=== PATIENT | male | born 1945 | race Caucasian/White ===

== ENCOUNTER 2021-02-16 14:44 | Emergency (ER) | payer MEDICARE, SELFPAY ==
[2021-02-16] VITALS (35 sets, daily range): BP systolic 125–159; BP diastolic 58–83; PULSE 72–98; RESP 18–22; TEMP 36.4–36.8; O2SAT 91–100
--- NOTE | ~2021-02-16 | CT_ITS ---
EXAMINATION: CTA neck DATE: 02/16/2021 17:32 INDICATION: Stabbing left neck pain TECHNIQUE: Computed tomography (CT) of the neck was performed with 100 mL Omnipaque-350 intravenous c ontrast. Three-dimensional reconstruction. Automated exposure control and iterative reconstruction te chnique were employed. Exam dose: 599.63 mGy-cm total exam DLP. COMPARISON: None FINDINGS: There is prominent calcified plaque at the left carotid bulb. There is focal moderate calcified plaque at the proximal right internal carotid artery. There is mild calcified plaque in the cavernous segments of the internal carotid arteries. No carotid artery occlusion or dissection is evident. The vertebrobasilar arterial circulation is intact. Aortic arch measures upper limits of normal caliber. No aortic arch dissection is evident. No superio r mediastinal mass lesion or adenopathy. No cervical mass lesion or lymphadenopathy is evident. Normal size and homogeneous enhancement of the thyroid gland. Patchy groundglass changes are noted in the upper lung zones. Multilevel degenerative disc disease is noted, particularly at C3-4 and most prominently at C5-6 and C6-7. IMPRESSION: Prominent calcified plaque at the left carotid bulb Moderate calcified plaque in the proximal right internal carotid artery Mild atherosclerotic plaque of the carotid siphon internal carotid arteries No obstruction or dissection of the carotid arteries is detected Multilevel degenerative disc disease of the cervical spine Reviewed, dictated and finalized at [facility]. Reviewed, dictated and finalized at [facility].
--- NOTE | 2021-02-16 14:48 | PC.NURSE ---
Daughter in law sharri Eaton,
[2021-02-16 15:50] LABS: Basophils Absolute Auto 0.1 K/mm3 (0.0-0.1); Basophils Percent Auto 0.7 % (0.2-1.2); Eosinophils Absolute Auto 0.6 K/mm3 (0-0.3); Hematocrit 37.9 % (42.0-52.0); Hemoglobin 13.2 g/dL (14.0-18.0); Immature Granulocyte Absolute 0.05 K/mm3 (0.00-0.031); Immature Granulocyte Percent A 0.5 % (0-0.5); Lymphocytes Absolute Auto 1.66 K/mm3 (0.9-3.2); Mean Corpuscular HGB Conc 34.8 g/dl (32-36); Mean Corpuscular Hemoglobin 31.2 pg (26-34); Mean Corpuscular Volume 89.6 fl (80-100); Mean Platelet Volume 9.5 fl (7.4-10.4); Monocytes Absolute Auto 0.8 K/mm3 (0.1-0.6); Monocytes Percent Auto 7.9 % (2.6-8.5); Neutrophils Absolute Auto 6.7 K/mm3 (1.3-6.7); Neutrophils Percent Auto 67.9 % (45.5-73.1); Platelet Count Result 188 k/mm3 (150-375); Red Blood Count 4.23 M/mm3 (4.6-6.20); Red Cell Distribution Width 12.9 % (11.5-14.5); White Blood Count 9.8 K/mm3 (4.5-10.0)
[2021-02-16] MEDS: HYDROmorphone HCL INJ (*CRX) 1 MG/ML SYR 0.5 MG IV PUSH (15:53)
[2021-02-16 16:00] LABS: Anion Gap 10 mmol/L (8-16); Blood Urea Nitrogen 27 mg/dL (9-20); Calcium 9.5 mg/dL (8.4-10.2); Carbon Dioxide 22 mmol/L (22-30); Chloride 105 mmol/L (98-107); Estimated CRCL calculation 52 ml/min; Estimated Glomerular Filt Rate > 60; Glucose 260 mg/dL (75-110); Potassium 4.5 mmol/L (3.4-5.0); Sodium 137 mmol/L (137-145)
[2021-02-16] MEDS: diazePAM INJ (*CRX) 10 MG/2 ML SYRINGE 2.5 MG IV PUSH (16:05)
[2021-02-16] MEDS: FAMOTIDINE 20 MG TABLET 40 MG PO (16:06)
[2021-02-16] MEDS: diphenhydrAMINE HCl INJ 50 MG/ML VIAL 25 MG IV PUSH (16:06)
--- NOTE | 2021-02-16 19:02 | PC.NURSE ---
Patient was not able to sit up to use sera-steady but was able to assist with raising his hips to allow pants to be pulled down to use urinal.
--- NOTE | 2021-02-16 19:25 | ED.NECK ---
HPI - Neck Pain/Injury General Chief Complaint: Neck Pain/Injury Stated Complaint: neck pain Time Seen by Provider: 02/16/21 14:53 Source: patient Mode of arrival: ambulatory Limitations: no limitations History of Present Illness HPI Narrative: Patient is a 75-year-old male complaining of left-sided neck pain, sudden onset, 10 out of 10, sharp, nonradiating started around 3 AM this morning. Patient states the pain is worse with movement or palpation of his left neck. Patient denies any injury. Patient denies any headache, speech or visual disturbance, chest pain, shortness of breath, abdominal pain, nausea, vomiting, fever or chills. Related Data Allergies Allergy/AdvReac Type Severity Reaction Status Date / Time Iodinated Contrast Media Allergy Unknown Verified 05/02/19 16:12 Penicillins Allergy Unknown Verified 05/02/19 16:12 Yvlmrbz-Zeg-Xnf Reductase Allergy Unknown Verified 05/02/19 16:12 Inhibitor Sulfa (Sulfonamide Allergy Unknown Verified 05/02/19 16:12 Antibiotics) CONTRAST DYE Allergy Unknown Uncoded 11/23/16 07:01 SULFAMERAZINE (Generic Allergy Unknown Y Uncoded 11/23/16 07:01 Allergy) Review of Systems Review of Systems: All systems reviewed & are unremarkable except as noted in HPI and below Constitutional: Constitutional: Denies body ache(s), Denies chills, Denies excessive sweating, Denies fatigue, Denies fever(s), Denies headache(s), Denies lethargy, Denies malaise, Denies weakness and Denies weight loss Eyes: Eyes: Denies blurry vision, Denies change in vision and Denies loss of vision ENT: Denies dizziness, Denies ear discharge, Denies headache(s), Denies lip swelling, Denies epistaxis, Denies nasal congestion, Denies neck pain, Denies throat swelling and Denies tongue swelling Cardiovascular: Cardiovascular: Denies chest pain, Denies chest pain at rest, Denies chest pain with activity, Denies diaphoresis, Denies rapid heart rate, Denies edema, Denies irregular heart rhythm, Denies lightheadedness, Denies palpitations, Denies dyspnea and Denies dyspnea on exertion Respiratory: Respiratory: Denies chest congestion, Denies cough, Denies hemoptysis, Denies dyspnea and Denies dyspnea on exertion Gastrointestinal: Gastrointestinal: Denies abdominal pain, Denies melena, Denies hematochezia, Denies diarrhea, Denies nausea, Denies vomiting and Denies hematemesis Musculoskeletal: Musculoskeletal: Denies abnormal gait, Denies deformity, Denies joint swelling, Denies limited range of motion, Denies neck pain and Denies numbness Neurologic: Denies Abnormal speech present, Denies abnormal gait, Denies confusion, Denies dizziness, Denies headache(s), Denies focal weakness, Denies loss of vision, Denies numbness, Denies Other visual disturbances, Denies Sensory deficit (Neuro) and Denies weakness Psychiatric: Psychiatric: Denies confusion, Denies depression, Denies auditory hallucinations, Denies homicidal ideation and Denies suicidal ideation Endocrine: Endocrine: Denies cold intolerance, Denies excessive sweating, Denies fatigue, Denies heat intolerance and Denies palpitations Hematologic/Lymphatic: Hematologic/Lymphatic: Denies easy bleeding and Denies easy bruising Allergic/Immunologic: Allergic/Immunologic: Denies lip swelling, Denies throat swelling and Denies tongue swelling [facility] Family History Family History (Updated 05/15/14 @ 07:13 by DOCTOR UNKNOWN) Father Malignant neoplasm of prostate Social History Social History Smoking status: Never smoker Smoking end date: 09/18/91 Alcohol intake: never Comments Past medical history: Hypertension Social history: Non-smoker no EtOH use lives at home Family history: Negative for aneurysm Exam Const: General: cooperative, healthy appearing, comfortable, no acute distress, well developed, alert and awake; No confusion Orientation/consciousness: oriented to person, oriented to place, oriented to time, patient oriented x3 and No confusion
== END 2021-02-16 20:01 | disposition home or self-care (01) ==
PROVIDERS: Emergency Provider Emergency Medicine
DX: M43.6 Torticollis (principal)
CPT/HCPCS: 36415; 70498; 80048; 85025; 96374; 96375; 99284; A9270; J1100; J1170; J1200; J3360; Q9967

== ENCOUNTER 2022-06-28 08:03 | Observation (INO) | payer MEDICARE, SELFPAY ==
[2022-06-28] VITALS (20 sets, daily range): BP systolic 115–167; BP diastolic 60–73; PULSE 60–81; RESP 10–21; TEMP 36.4–36.7; O2SAT 96–100
--- NOTE | ~2022-06-28 | CT_ITS ---
EXAMINATION: CTA BRAIN/CAROTID DATE: 06/28/2022 10:25 INDICATION: Recent stroke with occluded left internal carotid artery (neck with aphasia. TECHNIQUE: Computed tomographic angiography (CTA) of the head and neck was performed with 100 mL Omni paque-350 intravenous contrast. Multiplanar reconstructions and maximum intensity projection 3D-recon structions of the carotid arteries and of the intracranial arteries were created by the technologist on a separate workstation. Automated exposure control and iterative reconstruction technique were emp loyed.The dose-length product was 1048.68 mGy-cm. COMPARISON: Head CT dated 06/28/[address] angiogram dated 02/16/2021 FINDINGS: Carotid arteries: Normal caliber aortic arch. Anatomic variant separate origin of the left vertebral artery which arise s directly from the arch. Bilateral vertebral arteries are codominant. There is 10% stenosis of the r ight carotid bulb relative to normal distal artery lumen diameter (NASCET criteria). There is in near occlusion stenosis of the left carotid bulb relative to normal distal artery lumen diameter with mary rly indiscernible threadlike contrast at the site of the stenosis and diffuse decreased caliber throu ghout the more distal left internal carotid artery extending to the carotid siphon which is new since the prior study. Cervical soft tissues are unremarkable. Couple calcified nodules at the left apex c onsistent with old granulomatous disease. Severe cervical spondylosis. Intracranial arteries Atherosclerotic calcifications at the bilateral carotid siphons with no hemodynamically significant s tenosis on the right. On the left there is new significant diffuse decreased caliber of the left inte rnal carotid artery which as previously noted is secondary to the more proximal near occlusion stenos is at the left carotid bulb. There is no other hemodynamically significant stenosis in the vertebral, basilar and internal carotid arteries. Vertebral arteries are codominant. There are no aneurysms rocco ntified. Both A1 and P1 segments are patent. There is a patent anterior communicating artery. Cerebr al arterial arborization appears symmetric. No abnormally enhancing brain lesions identified. IMPRESSION: 1. 10% stenosis of the right carotid bulb relative to normal distal artery lumen diameter (NASCET cri teria). 2. New diffuse decreased caliber throughout the extracranial and intracranial left internal carotid a rtery secondary to a likely flow limiting near occlusion stenosis at the left carotid bulb. 3. Otherwise unremarkable cerebral CT angiogram with likely collateral flow to the left anterior circ ulation supplied via the right internal carotid artery and a patent anterior communicating artery. Reviewed, dictated and finalized at [facility]. IMPRESSION: 1. 10% stenosis of the right carotid bulb relative to normal distal artery lume n diameter (NASCET criteria). 2. New diffuse decreased caliber throughout the extracranial and intracranial l eft internal carotid artery secondary to a likely flow limiting near occlusion stenosis at the left carotid bulb. 3. Otherwise unremarkable cerebral CT angiogram with likely collateral flow to the left anterior circulation supplied via the right internal carotid artery an d a patent anterior communicating artery.
--- NOTE | ~2022-06-28 | MR_ITS ---
EXAMINATION: MR brain/brain stem wo con DATE: 06/29/2022 11:13 INDICATION: Unresponsiveness. Aphasia. TECHNIQUE: Magnetic resonance imaging (MRI) of the brain and brainstem was performed without intraven ous contrast. COMPARISON: Head and neck CTA 06/28/2022 FINDINGS: There is an infarct in left occipital lobe. There is an infarct in left thalamus. There are infarcts in left insula and parietal lobes. These findings are characterized by increased T2-weighte d signal intensity. There are scattered areas of nonspecific increased T2-weighted signal intensity i n the cerebral white matter, which is within normal limits for the patient's age. There is no intracr anial hemorrhage or abnormal mass lesion. The ventricles are normal in size. There is loss of the nor mal left internal carotid artery flow void. There are likely changes of ocular lens replacement surge ritchie. There is mucosal thickening in the paranasal sinuses. There is a trace left mastoid effusion. IMPRESSION: 1. Subacute versus chronic infarcts involving left occipital lobe, left insula, left parietal lobe, a nd left thalamus. 2. Loss of the normal left internal carotid artery flow void, likely secondary to slow flow from the near-occlusion stenosis of left cervical internal carotid artery demonstrated by CTA. Reviewed, dictated and finalized at location [facility]. IMPRESSION: 1. Subacute versus chronic infarcts involving left occipital lobe, left insula, left parietal lobe, and left thalamus. 2. Loss of the normal left internal carotid artery flow void, likely secondary to slow flow from the near-occlusion stenosis of left cervical internal carotid artery demonstrated by CTA.
--- NOTE | ~2022-06-28 | CT_ITS ---
EXAMINATION: CT brain wo con DATE: 06/28/2022 08:09 INDICATION: Evaluate for CVA. Mental status changes. TECHNIQUE: Computed tomography (CT) of the head was performed without intravenous contrast. The dose- length product was 605.33 mGy-cm. Automated exposure control and iterative reconstruction technique w ere employed. COMPARISON: None FINDINGS: Mild generalized atrophy. There are scattered mild periventricular and subcortical white ma tter changes, most likely related to small vessel ischemic disease (microangiopathy). No no acute int racranial hemorrhage or infarction. Ventriculomegaly or midline shift. Paranasal sinuses demonstrate mucosal thickening of the maxillary and ethmoid sinuses. Mastoids are pneumatized. No depressed skull fractures. Small chronic left thalamic infarct. IMPRESSION: 1. No acute intracranial abnormality. 2: Small chronic left thalamic infarction. 3: Chronic age-related findings. As per stroke protocol, I called these results to emergency room, discussed with Dr. Zuly peter at 06/28/2022 08:16 CDT. Reviewed, dictated and finalized at location A. IMPRESSION: 1. No acute intracranial abnormality. 2: Small chronic left thalamic infarction. 3: Chronic age-related findings. As per stroke protocol, I called these results to emergency room, discussed wit h Dr. Zuly Conley at 06/28/2022 08:16 CDT.
--- NOTE | ~2022-06-28 | XR_ITS ---
EXAMINATION: XR chest 1V portable DATE: 06/28/2022 08:28 INDICATION: Cerebrovascular accident. Weakness. TECHNIQUE: A single frontal view of the chest was obtained. COMPARISON: Chest 2 views 11/23/2016, CT abdomen and pelvis 05/07/2019 FINDINGS: The lung volumes are small. There is mild atelectasis in the lower lung zones. A calcified left lung nodule is consistent with old granulomatous disease. No pleural effusion or pneumothorax. T he heart size is normal. IMPRESSION: 1. Small lung volumes with mild atelectasis in the lower lung zones. Reviewed, dictated and finalized at location A.
--- NOTE | 2022-06-28 08:03 | ECG_ITS ---
Measurements Intervals [place] Rate: 76 P: 55 KS: 146 QRS: -22 QRSD: 99 T: 55 QT: 367 QTc: 413 Interpretive Statements SINUS RHYTHM POOR R-WAVE PROGRESSION, CANNOT RULE OUT AN OLD SEPTAL NH NO PREVIOUS ECG AVAILABLE FOR COMPARISON Electronically Signed On 06-28-2022 13:19:18 CDT by Celeste Bean M.D.
--- NOTE | 2022-06-28 08:23 | ED.NEUROSD ---
HPI - Neuro Symptoms/Deficit General Chief Complaint: Suspected CVA Stated Complaint: code stroke Time Seen by Provider: 06/28/22 08:09 History of Present Illness HPI Narrative: Patient is a 77-year-old male presenting as a code stroke. Patient was reportedly out walking with his when he became unresponsive. His was able to help him down and she called EMS. For EMS, patient was minimally responsive with left-sided weakness. Patient's reports that he complained of left-sided numbness prior to his unresponsiveness. Patient had a stroke approximately 6 weeks ago. On arrival, patient is minimally responsive but maintaining his airway. Related Data Home Medications Medication Instructions Recorded Confirmed insulin aspart U-100 100 unit/mL See Rx Instructions .Route .COMPLEX 02/26/21 06/28/22 (3 mL) subcutaneous pen (Novolog Flexpen U-100 Insulin aspart) insulin glargine 100 unit/mL 80 unit subcut QPM 02/26/21 06/28/22 subcutaneous solution (Lantus U-100 Insulin) lisinopril 10 mg tablet 5 mg PO DAILY 02/26/21 06/28/22 metformin 1,000 mg tablet 1,000 mg PO BID 02/26/21 06/28/22 multivitamin 1 tablet PO DAILY 02/26/21 06/28/22 pantoprazole 40 mg tablet,delayed 40 mg PO QHS 02/26/21 06/28/22 release psyllium husk 0.4 gram capsule 0.4 g PO DAILY 02/26/21 06/28/22 (Metamucil) empagliflozin 25 mg tablet 12.5 mg PO DAILY 06/28/22 06/28/22 Allergies Allergy/AdvReac Type Severity Reaction Status Date / Time Iodinated Contrast Media Allergy Intermediate rash Verified 06/28/22 10:03 Penicillins Allergy Unknown unknown Verified 06/28/22 10:03 Xzkoftj-WBD-QsZ Reductase Allergy Unknown unknown Verified 06/28/22 10:03 Inhibitor [Kwbiema-Dkh-Yjy Reductase Inhibitor] Sulfa (Sulfonamide Allergy Unknown unknown Verified 06/28/22 10:03 Antibiotics) sulfamerazine Allergy Unknown Unknown Verified 06/28/22 10:03 saxagliptin Allergy Unknown Verified 06/28/22 15:31 CONTRAST DYE Allergy Unknown unknown Uncoded 05/17/22 13:08 Review of Systems Review of Systems: ROS unobtainable: Yes unobtainable due to medical condition [facility] Past Medical History Medical History (Updated 06/29/22 @ 21:57 by Zuly Conley MD) Abdominal aortic atherosclerosis Annual physical exam Benign essential HTN Carotid atherosclerosis Constipation Degenerative arthritis of spine Diverticulosis of both small and large intestine Dupuytren's contracture of right hand Establishing care with new doctor, encounter for GERD (gastroesophageal reflux disease) Hyperlipidemia CHAPARRO (nonalcoholic steatohepatitis) Normal colonoscopy 2012,repeat 10 years 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 He has 2 children. He is retired from [employer]. He is a [place] vet. He was a former smoker. No longer drinks. He does not use any marijuana or illicit drugs. His is the durable power prosecuting attorney for healthcare. Code status full code Smoking packs per day: 1 Smoking cigarettes per day: 20.0 Years smoked: 20 Smoking pack-years: 20.00 Smoking status: Former smoker Tobacco type: cigarettes Second hand tobacco smoke exposure: No Smoking end date: 09/18/91 Alcohol intake: never Substance use: never Substance use type: does not use Gender identity (if verbalized by the patient): Male Sexual Orientation (if Verbalized by the Patient): Straight or Heterosexual Spiritual care concerns: No Exam Narrativ
[2022-06-28 08:32] LABS: Basophils Absolute Auto 0.1 K/mm3 (0.0-0.1); Eosinophils Absolute Auto 0.5 K/mm3 (0-0.3); Eosinophils Percent Auto 6.4 % (0-4.4); Hematocrit 38.4 % (42.0-52.0); Hemoglobin 13.3 g/dL (14.0-18.0); Immature Granulocyte Absolute 0.04 K/mm3 (0.00-0.031); Immature Granulocyte Percent A 0.5 % (0-0.5); Lymphocytes Absolute Auto 2.09 K/mm3 (0.9-3.2); Lymphocytes Percent Auto 28.6 % (18.3-44.2); Mean Corpuscular HGB Conc 34.6 g/dl (32-36); Mean Corpuscular Hemoglobin 30.6 pg (26-34); Mean Corpuscular Volume 88.3 fl (80-100); Mean Platelet Volume 9.5 fl (7.4-10.4); Monocytes Absolute Auto 0.7 K/mm3 (0.1-0.6); Neutrophils Absolute Auto 3.9 K/mm3 (1.3-6.7); Neutrophils Percent Auto 53.5 % (45.5-73.1); Platelet Count Result 204 k/mm3 (150-375); Red Blood Count 4.35 M/mm3 (4.6-6.20); Red Cell Distribution Width 13.2 % (11.5-14.5); White Blood Count 7.3 K/mm3 (4.5-10.0)
[2022-06-28 08:36] LABS: Alanine Aminotransferase 25 U/L (6-50); Albumin Level 4.3 g/dL (3.5-5.1); Alkaline Phosphatase 114 U/L (38-126); Anion Gap 11 mmol/L (8-16); Aspartate Amino Transferase 24 U/L (17-59); Bilirubin,Total 0.4 mg/dL (0.2-1.3); Blood Urea Nitrogen 42 mg/dL (9-20); Calcium 9.3 mg/dL (8.4-10.2); Carbon Dioxide 22 mmol/L (22-30); Chloride 106 mmol/L (98-107); Estimated Glomerular Filt Rate 54; Glucose 234 mg/dL (65-110); Potassium 4.7 mmol/L (3.4-5.0); Sodium 139 mmol/L (137-145)
[2022-06-28 08:38] LABS: Prothrombin Time 12.3 Seconds (11.1-14.7)
[2022-06-28 08:39] LABS: Partial Thromboplastin Time 28.9 SECONDS (22.3-36.8)
[2022-06-28 08:47] LABS: Troponin I < 0.012 ng/mL (0.000-0.034)
[2022-06-28] MEDS: SODIUM CHLORIDE 0.9% IV 1,000 ML 999 ML IV CONT (10:16)
[2022-06-28] MEDS: diphenhydrAMINE HCl INJ 50 MG/ML VIAL 25 MG IV PUSH (10:16)
[2022-06-28 11:02] LABS: Add Urine Microscopic? YES; Appearance Urine Clear (Clear); Bilirubin Urine Negative (Negative); Blood Urine Negative (Negative); Color Urine Straw (Yellow); Glucose Urine UA 3+ mg/dL (Negative); Ketones Urine Negative (Negative); Leukocyte Esterase Ur Negative LEU/UL (Negative); Nitrate Urine Negative (Negative); Protein Urine Negative (Negative); RBC Urine 0-2 /hpf (0-2); Urobilinogen Urine Negative mg/dL (<2.0); WBC Urine 0-3 /hpf
--- NOTE | 2022-06-28 12:04 | PC.NURSE ---
[facility] does not have tele beds; pt. offered opportunity to be put on their wait list and declined. Wants U called again.
[2022-06-28 13:38] LABS: SARS-CoV-2 RNA PCR Positive
--- NOTE | 2022-06-28 14:21 | WPDNEURCNPN ---
Assessment and Plan Assessment and plan (1) Unresponsiveness: Code(s): R41.89 - Other symptoms and signs involving cognitive functions and awareness Status: Acute (2) ICAO (internal carotid artery occlusion): Code(s): I65.29 - Occlusion and stenosis of unspecified carotid artery Status: Acute (3) Acute cerebrovascular accident (CVA) due to occlusion of left carotid artery: Code(s): I63.232 - Cerebral infarction due to unspecified occlusion or stenosis of left carotid arteries Status: Acute (4) Diabetes mellitus: Code(s): E11.9 - Type 2 diabetes mellitus without complications Status: Acute (5) Benign essential HTN: Code(s): I10 - Essential (primary) hypertension Status: Acute Plan Mr. Eaton is a 77 year old male with a history of HTN, DM type 2, carotid disease with near occlusion of L ICA, and prior left temporal/thalamic stroke presenting with episode of unresponsiveness and left sided weakness. Considering syncope due to carotid disease vs new stroke (given new LLE weakness) vs seizure. - MRI brain w/o contrast - Surface echo - If MRI negative for acute stroke, consider routine EEG - Continue ASA, Plavix, and Lipitor 80mg - Close outpatient vascular surgery follow-up Consult date: 06/28/22 HPI: Landen Eaton is a 77 year old male with a history of type 2 DM, HTN, carotid disease, and prior strokes presenting to the ED due to new weakness. Patient had a stroke about 6 weeks ago in the left temporal area and was also found to have near L internal carotid artery occlusion. He has been evaluated by vascular surgery in the past and was not a candidate for surgical intervention. He was discharged with DAPT and high dose atorvastatin. Per chart review, patient did not have any residual deficits after the stroke other than gait dysfunction. Today patient was walking with his when he complained of left sided numbness and then became unconscious. Patient does not recall the event, and does not know if there were any abnormal movements. EMS was called and he was minimally responsive at that time and appeared to have left sided weakness. No incontinence or tongue biting. On arrival to ED, patient was minimally responsive, but eventually regained consciousness. Patient is at baseline mental status now. He denies any persistent left numbness, but did feel that his left leg was weaker while he was examined. He also feels that his voice is quieter than usual. CT head showed old L thalamic infarct. CTA shows near occlusion of left ICA and 10% stenosis of R ICA. Review of Systems Constitutional: Constitutional: Reports no additional constitutional complaints Eyes: Eyes: Reports no additional eye complaints ENT: Denies dysphagia Comments: h/o hearing loss Cardiovascular: Cardiovascular: Reports no additional cardiovascular complaints Respiratory: Respiratory: Reports no additional respiratory complaints Gastrointestinal: Gastrointestinal: Reports no additional gastrointestinal complaints Genitourinary: Genitourinary: Reports no additional male genitourinary complaints Musculoskeletal: Musculoskeletal: Reports no additional musculoskeletal complaints Integumentary/Breasts: Skin/Breast: Reports system reviewed and no additional complaints, except as docu Neurologic: Reports as per HPI, Reports confusion and Reports numbness Psychiatric: Psychiatric: Reports behavioral changes and Reports confusion PMFSH Past Medical History Medical History Abdominal aortic atherosclerosis Benign essential HTN Carotid atherosclerosis Constipation Degenerative arthritis of spine Diverticulosis of both small and large intestine GERD (gastroesophageal reflux disease) Hyperlipidemia CHAPARRO (nonalcoholic steatohepatitis) Normal colonoscopy 2012,repeat 10 years Type 2 diabetes mellitus with diabetic chronic kidney disease
--- NOTE | 2022-06-28 15:16 | ADMGEN ---
This patient, Landen Eaton, was admitted to [facility] Surg Room 314-01. Patient/family oriented to hospital policies and general routines including ID bracelet, bed and alarms, visiting hours, pain management, procedures, bathroom and other care routines, personal items, smoking policy, room service/diet, and visiting hours. Information on how to activate the Rapid Response Team has been discussed. Patient/Family are encouraged to report perceived risks to care and to ask questions if they do not understand what they are told or what they should do. Patient in bed resting comfortably with no complaints at this time.
--- NOTE | 2022-06-28 22:54 | PM.IMHP ---
H&P: HPI History of Present Illness Date/Time: 06/28/22 22:54 Chief Complaint: Suspected CVA Narrative: this is a 77-year-old male patient who has a history of having of a stroke 6 weeks ago. The patient was out walking with his when he became unresponsive. The was unable to help him and so she called EMS. Patient was minimally responsive with left-sided weakness. Upon arrival to the emergency room he was minimally responsive but maintaining his airway. Head neck CT was read as the following. 1.10% stenosis of the right carotid bulb relative to normal distal artery lumen diameter (NASCET criteria). 2. New diffuse decreased caliber throughout the extracranial and intracranial left internal carotid artery secondary to a likely flow limiting near occlusion stenosis at the left carotid bulb. 3. Otherwise unremarkable cerebral CT angiogram with likely collateral flow to the left anterior circulation supplied via the right internal carotid artery and a patent anterior communicating artery. chest x-ray was read as small lung volumes with mild atelectasis in the lower lung zones. Head CT was read as no acute intracranial abnormality. Small chronic left at the make infarction. Chronic age-related findings. The patient was given IV fluids and Benadryl. Neurology has been consulted. His H&H today is 13.3 and 38.4 which is his baseline. His blood sugar was noted to be 234. The patient was found to be COVID positive but he was COVID positive 1 month ago and is no longer on isolation. The patient is being admitted to observation on the date of service of 06/28/2022. Review of Systems Review of Systems: See HPI All systems reviewed & are unremarkable except as noted in HPI and below Constitutional: Constitutional: Reports as per HPI and Reports no additional constitutional complaints Eyes: Eyes: Reports as per HPI and Reports no additional eye complaints ENT: Reports system reviewed and no additional complaints, except as documented and Reports Normal hearing present Cardiovascular: Cardiovascular: Reports no additional cardiovascular complaints Respiratory: Respiratory: Reports no additional respiratory complaints and Reports no additional respiratory complaints Gastrointestinal: Gastrointestinal: Reports as per HPI and Reports no additional gastrointestinal complaints Musculoskeletal: Musculoskeletal: Reports no additional musculoskeletal complaints Integumentary/Breasts: Skin/Breast: Reports system reviewed and no additional complaints, except as docu and Reports as per HPI Neurologic: Reports system reviewed and no additional complaints, except as documented, Reports as per HPI and Reports Normal hearing present Psychiatric: Psychiatric: Reports no additional psychiatric complaints and Reports as per HPI Endocrine: Endocrine: Reports no additional endocrine complaints Hematologic/Lymphatic: Hematologic/Lymphatic: Reports no additional hematologic/lymphatic complaints Allergic/Immunologic: Allergic/Immunologic: Reports no additional allergic/immunologic complaints [facility] Past Medical History Medical History (Updated 06/28/22 @ 23:16 by Annamarie Smart NP) Abdominal aortic atherosclerosis Annual physical exam Benign essential HTN Carotid atherosclerosis Constipation Degenerative arthritis of spine Diverticulosis of both small and large intestine Dupuytren's contracture of right hand Establishing care with new doctor, encounter for GERD (gastroesophageal reflux disease) Hyperlipidemia CHAPARRO (nonalcoholic steatohepatitis) Normal colonoscopy 2012,repeat 10 years 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
[2022-06-29] VITALS: PULSE 66
--- NOTE | 2022-06-29 | ECHO_ITS ---
Patient Info Name: Landen Eaton Age: 77 years : 1945 Gender: Male Ht: 69 in Wt: 171 lbs BSA: 1.95 m2 HR: 72 bpm BP: 131 / 65 mmHg Heart Rhythm: Sinus Rhythm Technical Quality: Fair Exam Date: 06/29/2022 3:03 PM Exam Location: [facility] Patient Status: Outpatient Admit Date: 06/28/2022 Staff Ordering Physician: Juliette Hayes PA-C Prize Fighter: Kayleen Brooks RDCS Attending Provider: Juliette Hayes PA-C Referring Physician: Freddy DENNIS; Exam Type: CA echo doppler w bubble study Study Info Indications - CVA, SYNCOPE Complete two-dimensional, color flow and Doppler transthoracic echocardiogram is performed with agitated saline. Contrast/Agitated Saline Contrast/Ag. Saline: Agitated Saline Amount: 20.00 ml Administered By: Mare Carter Existing IV Access: Yes IV Access Condition: patent with no signs of infiltration Summary 1. Left ventricular chamber dimension is normal. 2. Left ventricular systolic function is normal, estimated at 60-65%. 3. There is mildly increased left ventricular wall thickness. 4. The left ventricular diastolic function is grade I diastolic dysfunction. 5. E/e' 11 is mildly elevated. 6. There is mild aortic valve sclerosis. 7. The mitral valve has mildly calcified annulus. 8. There is mild tricuspid valve regurgitation. 9. No pulmonary hypertension, estimated pulmonary arterial systolic pressure is 24 mmHg. Left Ventricle E/e' 11 is mildly elevated. Left ventricular chamber dimension is normal. Left ventricular systolic function is normal, estimated at 60-65%. There is mildly increased left ventricular wall thickness. The left ventricular diastolic function is grade I diastolic dysfunction. Right Ventricle Right ventricular systolic function is normal and with normal TAPSE 1.7 cm. Right ventricular chamber dimension is normal. Left Atria Left atrial chamber dimension is normal. Right Atria Right atrial chamber dimension is normal. Atrial Septum Agitated saline injection with and without valsalva maneuver opacified right side cardiac chambers without shunt to left side cardiac chambers. Intact interatrial septum visualized by 2D, color flow and agitated saline imaging. Aortic Valve The aortic valve is trileaflet. There is mild aortic valve sclerosis. There is no aortic valve stenosis. There is no aortic valve regurgitation. Pulmonic Valve There is no pulmonic regurgitation. Mitral Valve The mitral valve has mildly calcified annulus. There is no mitral valve stenosis. There is no mitral valve regurgitation. Tricuspid Valve There is mild tricuspid valve regurgitation. No pulmonary hypertension, estimated pulmonary arterial systolic pressure is 24 mmHg. Pericardium/Pleural There is no pericardial effusion. Inferior Vena Cava Normal inferior vena cava with >50% collapse upon inspiration consistent with normal right atrial pressure, 5 mmHg. Aorta The aortic root size at the sinus of Valsalva is normal. Left Ventricular Outflow Tract Name Value Normal LVOT 2D LVOT Diameter 2.0 cm LVOT Doppler
[2022-06-29] MEDS: ATORVASTATIN 40 MG TABLET 80 MG PO ×2 (01:09→21:44)
[2022-06-29] MEDS: PANTOPRAZOLE 40 MG TABLET PO ×2 (01:10→21:44)
[2022-06-29 04:00] VITALS: PULSE 61
[2022-06-29 06:00] VITALS: BP 131/65; PULSE 72; RESP 16; TEMP 36.7; O2SAT 98
[2022-06-29 06:27] LABS: Basophils Absolute Auto 0.1 K/mm3 (0.0-0.1); Basophils Percent Auto 0.9 % (0.2-1.2); Eosinophils Absolute Auto 0.6 K/mm3 (0-0.3); Eosinophils Percent Auto 7.2 % (0-4.4); Hematocrit 38.6 % (42.0-52.0); Hemoglobin 13.2 g/dL (14.0-18.0); Immature Granulocyte Absolute 0.04 K/mm3 (0.00-0.031); Immature Granulocyte Percent A 0.5 % (0-0.5); Lymphocytes Percent Auto 26.2 % (18.3-44.2); Mean Corpuscular HGB Conc 34.2 g/dl (32-36); Mean Corpuscular Hemoglobin 30.2 pg (26-34); Mean Corpuscular Volume 88.3 fl (80-100); Mean Platelet Volume 9.6 fl (7.4-10.4); Monocytes Absolute Auto 0.8 K/mm3 (0.1-0.6); Monocytes Percent Auto 10.1 % (2.6-8.5); Neutrophils Absolute Auto 4.2 K/mm3 (1.3-6.7); Neutrophils Percent Auto 55.1 % (45.5-73.1); Platelet Count Result 190 k/mm3 (150-375); Red Blood Count 4.37 M/mm3 (4.6-6.20); Red Cell Distribution Width 13.3 % (11.5-14.5); White Blood Count 7.6 K/mm3 (4.5-10.0)
[2022-06-29 06:45] LABS: Alanine Aminotransferase 25 U/L (6-50); Albumin Level 4.2 g/dL (3.5-5.1); Alkaline Phosphatase 85 U/L (38-126); Anion Gap 10 mmol/L (8-16); Aspartate Amino Transferase 24 U/L (17-59); Bilirubin,Total 0.5 mg/dL (0.2-1.3); Blood Urea Nitrogen 30 mg/dL (9-20); Calcium 9.3 mg/dL (8.4-10.2); Carbon Dioxide 22 mmol/L (22-30); Chloride 109 mmol/L (98-107); Estimated Glomerular Filt Rate 59; Glucose 166 mg/dL (65-110); Magnesium 1.8 mg/dL (1.6-2.3); Potassium 4.5 mmol/L (3.4-5.0); Sodium 141 mmol/L (137-145)
[2022-06-29 07:11] LABS: Hemoglobin A1C 7.6 % (<5.7)
[2022-06-29 08:00] VITALS: PULSE 64
[2022-06-29] MEDS: lisinopriL 5 MG TABLET PO (08:13)
[2022-06-29] MEDS: MULTIVITAMINS THERAPEUTIC TAB (*BKC) 1 TABLET PO (08:13)
[2022-06-29] MEDS: CLOPIDOGREL BISULFATE 75 MG TABLET PO (08:13)
[2022-06-29] MEDS: EMPAGLIFLOZIN 12.5 MG TABLET PO (08:13)
[2022-06-29] MEDS: PSYLLIUM POWDER PACKET 1 PACKET BY MOUTH (08:14)
[2022-06-29 08:29] LABS: Glucose Point of Care 181 mg/dl (65-105)
--- NOTE | 2022-06-29 11:34 | PCNWS ---
Weekly nutritional screen. Patient is tolerating current diet with adequate intake. No nutritional needs at this time. Upon talking to patient, weight loss reported on nursing screen is planned weight loss, related to increased exercise. Appetite is good. Follow up 7 days.
[2022-06-29 11:53] LABS: Glucose Point of Care 367 mg/dl (65-105)
[2022-06-29] MEDS: INSULIN ASPART (*BKC) 100 UNITS/ML SUB-Q ×2 (12:05→17:35)
[2022-06-29 12:44] LABS: Glucose Point of Care 226 mg/dl (65-105)
--- NOTE | 2022-06-29 13:57 | WPDNEUROPN ---
Progress Note: A&P Assessment and Plan (1) Chronic left arterial ischemic stroke, ICA (internal carotid artery): Code(s): I69.30 - Unspecified sequelae of cerebral infarction Status: Acute (2) Unresponsiveness: Code(s): R41.89 - Other symptoms and signs involving cognitive functions and awareness Status: Acute (3) Type 2 diabetes mellitus with diabetic chronic kidney disease: Code(s): E11.22 - Type 2 diabetes mellitus with diabetic chronic kidney disease Status: Acute (4) Hyperlipidemia: Code(s): E78.5 - Hyperlipidemia, unspecified Status: Acute (5) Benign essential HTN: Code(s): I10 - Essential (primary) hypertension Status: Acute Plan Mr. Eaton is a 77 year old male with a history of HTN, DM type 2, carotid disease with near occlusion of L ICA (intracranial and extracranial), and prior left temporal/thalamic stroke presenting with episode of unresponsiveness and left sided weakness. MRI showed subacute vs chronic infarct in the left parietal, occipital, insula, and thalamus. Prior stroke was documented to be in left temporal region. Etiology is likely large vessel disease given significant L ICA stenosis. As for the episodes of decreased consciousness, suspect that they are likely syncopal events due to carotid stenosis, although seizure is also a consideration given history of strokes. - Surface echo pending - Will obtain routine EEG - Continue ASA, Plavix, and Lipitor 80mg - Patient will need to be re-evaluated by neurointerventionalist/vascular surgery within the next 2 weeks; if unable to be seen as outpatient within that timeframe, will transfer to center that has vascular surgery/interventional neurology Subjective Date/time seen: 06/29/22 13:57 Interval history: Landen Eaton is a 77 year old male with a history of type 2 DM, HTN, carotid disease, and prior strokes presenting to the ED due to new weakness. Patient had a stroke about 6 weeks ago? in the left temporal area and was also found to have near L internal carotid artery occlusion. He has been evaluated by vascular surgery in the past and was not a candidate for surgical intervention. He was discharged with DAPT and high dose atorvastatin. Per chart review, patient did not have any residual deficits after the stroke other than gait dysfunction. On 06/29 patient was walking with his when he complained of left sided numbness and then became unconscious. denies any abnormal movements, but he was staring off and not responding to stimuli. Patient does not recall the event. Per daughter he had a similar episode last month. EMS was called and he was minimally responsive at that time and appeared to have left sided weakness. No incontinence or tongue biting. On arrival to ED, patient was still minimally responsive, but eventually regained consciousness. CT head showed old L thalamic infarct. CTA shows near occlusion of left ICA and 10% stenosis of R ICA. MRI brain showed subacute vs chronic infarct in the left parietal, occipital, insula, and thalamus. Patient denies any complaints this morning. He was able to ambulate with assistance this morning. No reports of weakness. Daughter at bedside. Review of Systems Constitutional: Constitutional: Reports no additional constitutional complaints Eyes: Eyes: Reports no additional eye complaints ENT: Reports system reviewed and no additional complaints, except as documented Cardiovascular: Cardiovascular: Reports no additional cardiovascular complaints Respiratory: Respiratory: Reports no additional respiratory complaints Gastrointestinal: Gastrointestinal: Reports no additional gastrointestinal complaints Genitourinary: Genitourinary: Reports no additional male genitourinary complaints Musculoskeletal: Musculoskeletal: Reports no additional musculoskeletal complaints Integumentary/Breasts: Skin/Breast: Reports system reviewed and no additional complai
[2022-06-29 14:00] VITALS: BP 104/57; PULSE 72; RESP 14; TEMP 36.3; O2SAT 97
--- NOTE | 2022-06-29 16:25 | P.PNIM_ITS ---
Progress Note: A&P Assessment and Plan (1) Unresponsiveness: Code(s): R41.89 - Other symptoms and signs involving cognitive functions and awareness Status: Acute Assessment and Plan: Patient had an episode of decreased responsiveness witnessed by family, duration not entirely clear * likely consistent with syncopal event, possibly related to carotid occlusion * see plan below * appreciate neurology consultation * head/neck CTA does not show any acute finding * echocardiogram is pending * EEG pending (2) Chronic left arterial ischemic stroke, ICA (internal carotid artery): Code(s): I69.30 - Unspecified sequelae of cerebral infarction Status: Acute Assessment and Plan: patient with history of CVA 6 weeks ago, evaluated at outside facility. * does not seem to have any major residual deficits * brain MRI showed subacute vs chronic infarcts involving left occipital lobe, left insula, left parietal lobe, and left thalamus * continue aspirin, Plavix, atorvastatin (3) ICAO (internal carotid artery occlusion): Code(s): I65.29 - Occlusion and stenosis of unspecified carotid artery Status: Acute Assessment and Plan: CTA reveals new diffuse decreased caliber throughout the extracranial and intracranial left internal carotid artery secondary to likely flow limiting near occlusion stenosis at the left carotid bulb with 10% stenosis of the right carotid bulb * Neurology recommends evaluation by vascular surgery or neuro interventionalist within 2 weeks given CVA and syncopal episodes. * Patient was evaluated by vascular surgery at outside hospital but was informed surgery was not indicated at that time. * Records have been requested from outside hospital for further evaluation, unfortunately patient has declined to sign the records release. Awaiting for call back from daughter/POA to talk to patient about signing or to sign the form herself. once appropriate information is obtained, I will call patient's vascular surgeon for further information * Spoke with [facility] neurointerventionalist, report patient may be candidate for stent, however would need to consider angiogram for further evaluation. Will follow-up once records from outside facility are obtained. * With outpatient follow-up not able to be completed within 2 weeks, would need to arrange inpatient transfer (4) Diabetes mellitus: Code(s): E11.9 - Type 2 diabetes mellitus without complications Status: Acute Assessment and Plan: A1c is 7.6. * Home insulin regimen consist of 80 units Lantus q.h.s. with NovoLog 12 units a.m. 25 units with lunch and 25 units with dinner. Patient states he does not believe in diabetic diet or dietary modifications. * Continue with Accu-Cheks, sliding scale insulin, hypoglycemic protocol * Home metformin on hold * Will decrease Lantus at this time to avoid hypoglycemia. Transition to 50 units Lantus qHS with novolog 15 units scheduled with meals * Monitor glucose trends closely (5) Benign essential HTN: Code(s): I10 - Essential (primary) hypertension Status: Acute Assessment and Plan: Blood pressure is stable. * Continue home lisinopril * Monitor glucose trends Plan COVID PCR remains positive following acute COVID infection 1 month prior. No need for isolation precautions. Patient maintaining adequate O2 saturations. No need for further evaluation or monitoring. Subjective Date/time seen: 06/29/22 16:25 Interval history: Date of service: 06/29/2022 Landen Vincent
--- NOTE | 2022-06-29 16:25 | PM.IMPN ---
Progress Note: A&P Assessment and Plan (1) Unresponsiveness: Code(s): R41.89 - Other symptoms and signs involving cognitive functions and awareness Status: Acute Assessment and Plan: Patient had an episode of decreased responsiveness witnessed by family, duration not entirely clear likely consistent with syncopal event, possibly related to carotid occlusion see plan below appreciate neurology consultation head/neck CTA does not show any acute finding echocardiogram is pending EEG pending (2) Chronic left arterial ischemic stroke, ICA (internal carotid artery): Code(s): I69.30 - Unspecified sequelae of cerebral infarction Status: Acute Assessment and Plan: patient with history of CVA 6 weeks ago, evaluated at outside facility. does not seem to have any major residual deficits brain MRI showed subacute vs chronic infarcts involving left occipital lobe, left insula, left parietal lobe, and left thalamus continue aspirin, Plavix, atorvastatin (3) ICAO (internal carotid artery occlusion): Code(s): I65.29 - Occlusion and stenosis of unspecified carotid artery Status: Acute Assessment and Plan: CTA reveals new diffuse decreased caliber throughout the extracranial and intracranial left internal carotid artery secondary to likely flow limiting near occlusion stenosis at the left carotid bulb with 10% stenosis of the right carotid bulb Neurology recommends evaluation by vascular surgery or neuro interventionalist within 2 weeks given CVA and syncopal episodes. Patient was evaluated by vascular surgery at outside hospital but was informed surgery was not indicated at that time. Records have been requested from outside hospital for further evaluation, unfortunately patient has declined to sign the records release. Awaiting for call back from daughter/POA to talk to patient about signing or to sign the form herself. once appropriate information is obtained, I will call patient's vascular surgeon for further information Spoke with [facility] neurointerventionalist, report patient may be candidate for stent, however would need to consider angiogram for further evaluation. Will follow-up once records from outside facility are obtained. With outpatient follow-up not able to be completed within 2 weeks, would need to arrange inpatient transfer (4) Diabetes mellitus: Code(s): E11.9 - Type 2 diabetes mellitus without complications Status: Acute Assessment and Plan: A1c is 7.6. Home insulin regimen consist of 80 units Lantus q.h.s. with NovoLog 12 units a.m. 25 units with lunch and 25 units with dinner. Patient states he does not believe in diabetic diet or dietary modifications. Continue with Accu-Cheks, sliding scale insulin, hypoglycemic protocol Home metformin on hold Will decrease Lantus at this time to avoid hypoglycemia. Transition to 50 units Lantus qHS with novolog 15 units scheduled with meals Monitor glucose trends closely (5) Benign essential HTN: Code(s): I10 - Essential (primary) hypertension Status: Acute Assessment and Plan: Blood pressure is stable. Continue home lisinopril Monitor glucose trends Plan COVID PCR remains positive following acute COVID infection 1 month prior. No need for isolation precautions. Patient maintaining adequate O2 saturations. No need for further evaluation or monitoring. Subjective Date/time seen: 06/29/22 16:25 Interval history: Date of service: 06/29/2022 Landen Eaton is a 77 year old male with a history of carotid atherosclerosis, HTN, hyperlipidemia, type 2 diabetes mellitus, and recent CVA 6 weeks ago evaluated at outside hospital, did not receive tPA due late presentation who is seen in follow-up for sudden onset left-sided weakness, tingling of left upper extremity With subsequent unresponsive episode. Patient reports he is feeling better today. He h
[2022-06-29 16:31] LABS: Glucose Point of Care 223 mg/dl (65-105)
[2022-06-29] MEDS: INSULIN ASPART (*BKC) 100 UNITS/ML 15 UNITS SUB-Q (17:34)
[2022-06-29] MEDS: INSULIN GLARGINE (*BKC) 100 UNITS/ML 50 UNITS SUB-Q (21:46)
[2022-06-29 22:00] VITALS: BP 129/71; PULSE 70; RESP 15; TEMP 36.5; O2SAT 97
[2022-06-29 22:02] LABS: Glucose Point of Care 143 mg/dl (65-105)
[2022-06-30] VITALS (8 sets, daily range): BP systolic 113–133; BP diastolic 59–65; PULSE 59–78; RESP 16–17; TEMP 36.1–36.6; O2SAT 98–99
[2022-06-30 06:44] LABS: Hematocrit 37.8 % (42.0-52.0); Hemoglobin 12.9 g/dL (14.0-18.0); Mean Corpuscular HGB Conc 34.1 g/dl (32-36); Mean Corpuscular Hemoglobin 30.9 pg (26-34); Mean Corpuscular Volume 90.4 fl (80-100); Mean Platelet Volume 9.3 fl (7.4-10.4); Platelet Count Result 168 k/mm3 (150-375); Red Blood Count 4.18 M/mm3 (4.6-6.20); Red Cell Distribution Width 13.2 % (11.5-14.5); White Blood Count 7.4 K/mm3 (4.5-10.0)
[2022-06-30 07:01] LABS: Anion Gap 12 mmol/L (8-16); Blood Urea Nitrogen 28 mg/dL (9-20); Calcium 8.9 mg/dL (8.4-10.2); Carbon Dioxide 26 mmol/L (22-30); Chloride 101 mmol/L (98-107); Estimated Glomerular Filt Rate 49; Glucose 222 mg/dL (65-110); Potassium 4.1 mmol/L (3.4-5.0); Sodium 139 mmol/L (137-145)
[2022-06-30 08:37] LABS: Glucose Point of Care 197 mg/dl (65-105)
--- NOTE | 2022-06-30 08:37 | WPDNEUROLOGY ---
Neurology EEG Report General Information Date of Study: 06/30/22 TEST Routine EEG DIAGNOSIS Seizure-like activity vs syncope CONDITION OF RECORDING Awake, drowsy, and asleep EEG NUMBER [id number] CLINICAL HISTORY Patient reports he was out taking his morning walk when he became light headed, lost consciousness and had slurred speech for several hours. EEG DESCRIPTION During the awake state with eyes closed there is no clear posterior dominant rhythm. Amplitudes are suppressed. The recording is continuous. No significant asymmetries of background activities are noted. Sleep spindles were noted during stage II sleep. There are no epileptiform discharges or seizures during this recording. Hyperventilation and photic stimulation were not performed. IMPRESSION This is an abnormal routine EEG due to lack of well defined posterior dominant rhythm and suppressed background. This can be seen in the setting of mild encephalopathy. There are no electrographic seizures identified, nor are there any epileptiform discharges. Clinical correlation is recommended.
[2022-06-30] MEDS: INSULIN ASPART (*BKC) 100 UNITS/ML 15 UNITS SUB-Q ×2 (09:03→12:16)
[2022-06-30] MEDS: CLOPIDOGREL BISULFATE 75 MG TABLET PO (09:04)
[2022-06-30] MEDS: MULTIVITAMINS THERAPEUTIC TAB (*BKC) 1 TABLET PO (09:04)
[2022-06-30] MEDS: ASPIRIN 81 MG ENTERIC TABLET PO (09:04)
[2022-06-30] MEDS: EMPAGLIFLOZIN 12.5 MG TABLET PO (09:04)
[2022-06-30] MEDS: lisinopriL 5 MG TABLET PO (09:04)
[2022-06-30] MEDS: PSYLLIUM POWDER PACKET 1 PACKET BY MOUTH (09:04)
[2022-06-30 11:51] LABS: Glucose Point of Care 318 mg/dl (65-105)
[2022-06-30] MEDS: INSULIN ASPART (*BKC) 100 UNITS/ML SUB-Q ×2 (12:16→17:15)
--- NOTE | 2022-06-30 13:12 | WPDNEUROPN ---
Progress Note: A&P Assessment and Plan (1) Chronic left arterial ischemic stroke, ICA (internal carotid artery): Code(s): I69.30 - Unspecified sequelae of cerebral infarction Status: Acute (2) ICAO (internal carotid artery occlusion): Code(s): I65.29 - Occlusion and stenosis of unspecified carotid artery Status: Acute (3) Benign essential HTN: Code(s): I10 - Essential (primary) hypertension Status: Acute (4) Diabetes mellitus: Code(s): E11.9 - Type 2 diabetes mellitus without complications Status: Acute Plan Mr. Eaton is a 77 year old male with a history of HTN, DM type 2, carotid disease with near occlusion of L ICA (intracranial and extracranial), and prior left temporal/thalamic stroke presenting with episode of unresponsiveness and left sided weakness. MRI showed subacute vs chronic infarct in the left parietal, occipital, insula, and thalamus. Prior stroke was documented to be in left temporal region. Etiology is likely large vessel disease given significant L ICA stenosis. As for the episodes of decreased consciousness, suspect that they are likely syncopal events due to carotid stenosis. - Continue ASA, Plavix, and Lipitor 80mg - Plan on re-evaluation by neurointerventionalist/vascular surgery within the next 2 weeks; if unable to be seen as outpatient within that timeframe, will transfer to center that has vascular surgery/interventional neurology Subjective Date/time seen: 06/30/22 13:12 Interval history: Landen Eaton is a 77 year old male with a history of type 2 DM, HTN, carotid disease, and prior strokes presenting to the ED due to new weakness. Patient had a stroke about 6 weeks ago? in the left temporal area and was also found to have near L internal carotid artery occlusion. He has been evaluated by vascular surgery in the past and was not a candidate for surgical intervention. He was discharged with DAPT and high dose atorvastatin. Per chart review, patient did not have any residual deficits after the stroke other than gait dysfunction. On 06/29 patient was walking with his when he complained of left sided numbness and then became unconscious. denies any abnormal movements, but he was staring off and not responding to stimuli. Patient does not recall the event. Per daughter he had a similar episode last month. EMS was called and he was minimally responsive at that time and appeared to have left sided weakness. No incontinence or tongue biting. On arrival to ED, patient was still minimally responsive, but eventually regained consciousness. CT head showed old L thalamic infarct. CTA shows near occlusion of left ICA and 10% stenosis of R ICA. MRI brain showed subacute vs chronic infarct in the left parietal, occipital, insula, and thalamus. Patient denies any complaints this morning. Updated daughter at bedside. She is working on obtaining records from vascular surgeon. EEG did not reveal any epileptiform features. Echo was unrevealing. Review of Systems Constitutional: Constitutional: Reports weakness Comments: generalized weakness Eyes: Eyes: Reports no additional eye complaints ENT: Comments: hearing loss Cardiovascular: Cardiovascular: Reports no additional cardiovascular complaints Respiratory: Respiratory: Reports no additional respiratory complaints Gastrointestinal: Gastrointestinal: Reports no additional gastrointestinal complaints Genitourinary: Genitourinary: Reports no additional male genitourinary complaints Musculoskeletal: Musculoskeletal: Reports no additional musculoskeletal complaints Integumentary/Breasts: Skin/Breast: Reports system reviewed and no additional complaints, except as docu Neurologic: Reports as per HPI Psychiatric: Psychiatric: Reports no additional psychiatric complaints Exam Const: General: comfortable and no acute distress HENMT: Face/Nose/Sinus: Normal nares present Mouth: Yes moist mucous membranes
--- NOTE | 2022-06-30 16:52 | P.PNIM_ITS ---
Progress Note: A&P Assessment and Plan (1) Unresponsiveness: Code(s): R41.89 - Other symptoms and signs involving cognitive functions and awareness Status: Acute Assessment and Plan: Patient had an episode of decreased responsiveness witnessed by family, duration not entirely clear * likely consistent with syncopal event, most likely related to carotid occlusion * see plan below * appreciate neurology consultation * head/neck CTA does not show any acute findings * echocardiogram with normal EF 60-65%, grade 1 diastolic dysfunction, no significant valvular disease * EEG with findings consistent of mild encephalopathy, no epileptiform discharges. (2) Chronic left arterial ischemic stroke, ICA (internal carotid artery): Code(s): I69.30 - Unspecified sequelae of cerebral infarction Status: Acute Assessment and Plan: patient with history of CVA 6 weeks ago, evaluated at outside facility. * does not seem to have any major residual deficits * brain MRI showed subacute vs chronic infarcts involving left occipital lobe, left insula, left parietal lobe, and left thalamus * continue aspirin, Plavix, atorvastatin * Allow for permissive hypertension. Avoid hypotension, recommended MAP 65- 70. Do not treat for SBP <180 per [facility] neuro separations scientist recommendations. Keep well hydrated. (3) ICAO (internal carotid artery occlusion): Code(s): I65.29 - Occlusion and stenosis of unspecified carotid artery Status: Acute Assessment and Plan: CTA reveals new diffuse decreased caliber throughout the extracranial and intracranial left internal carotid artery secondary to likely flow limiting near occlusion stenosis at the left carotid bulb with 10% stenosis of the right carotid bulb * Neurology recommends evaluation by vascular surgery or neuro interventionalist given CVA and syncopal episodes. * Patient was evaluated by vascular surgery at outside hospital but was informed surgery was not indicated at that time. * Spoke with [facility] neurointerventionalist, report patient may be candidate for stent, however would need to consider angiogram for further evaluation. Recommends inpatient transfer rather than outpatient follow-up due to symptomatic episodes. * 06/30 16:20: Spoke with Dr. Natarajan at [facility]. Accepts patient for high priority transfer. Awaiting bed availability. (4) Diabetes mellitus: Code(s): E11.9 - Type 2 diabetes mellitus without complications Status: Acute Assessment and Plan: A1c is 7.6. * Home insulin regimen consist of 80 units Lantus q.h.s. with NovoLog 12 units a.m. 25 units with lunch and 25 units with dinner. Patient states he does not believe in diabetic diet or dietary modifications. * Continue with Accu-Cheks, sliding scale insulin, hypoglycemic protocol * Home metformin on hold * Blood sugars are poorly controlled. Increase Lantus to 55 units Lantus qHS with novolog 18 units scheduled with meals * Monitor glucose trends closely (5) Benign essential HTN: Code(s): I10 - Essential (primary) hypertension Status: Acute Assessment and Plan: Blood pressure is stable and patient is asymptomatic. * BP parameters as noted above. * Stopped home lisinopril. * Monitor BP trends (6) CKD (chronic kidney disease): Code(s): N18.9 - Chronic kidney disease, unspecified Status: Acute Assessment and Plan: Patient established with Nephrology. Renal function is consistent with baseline. Plan COVID PCR remains positive following
--- NOTE | 2022-06-30 16:52 | PM.IMPN ---
Progress Note: A&P Assessment and Plan (1) Unresponsiveness: Code(s): R41.89 - Other symptoms and signs involving cognitive functions and awareness Status: Acute Assessment and Plan: Patient had an episode of decreased responsiveness witnessed by family, duration not entirely clear likely consistent with syncopal event, most likely related to carotid occlusion see plan below appreciate neurology consultation head/neck CTA does not show any acute findings echocardiogram with normal EF 60-65%, grade 1 diastolic dysfunction, no significant valvular disease EEG with findings consistent of mild encephalopathy, no epileptiform discharges. (2) Chronic left arterial ischemic stroke, ICA (internal carotid artery): Code(s): I69.30 - Unspecified sequelae of cerebral infarction Status: Acute Assessment and Plan: patient with history of CVA 6 weeks ago, evaluated at outside facility. does not seem to have any major residual deficits brain MRI showed subacute vs chronic infarcts involving left occipital lobe, left insula, left parietal lobe, and left thalamus continue aspirin, Plavix, atorvastatin Allow for permissive hypertension. Avoid hypotension, recommended MAP 65-70. Do not treat for SBP <180 per [facility] neuro jig borer recommendations. Keep well hydrated. (3) ICAO (internal carotid artery occlusion): Code(s): I65.29 - Occlusion and stenosis of unspecified carotid artery Status: Acute Assessment and Plan: CTA reveals new diffuse decreased caliber throughout the extracranial and intracranial left internal carotid artery secondary to likely flow limiting near occlusion stenosis at the left carotid bulb with 10% stenosis of the right carotid bulb Neurology recommends evaluation by vascular surgery or neuro interventionalist given CVA and syncopal episodes. Patient was evaluated by vascular surgery at outside hospital but was informed surgery was not indicated at that time. Spoke with [facility] neurointerventionalist, report patient may be candidate for stent, however would need to consider angiogram for further evaluation. Recommends inpatient transfer rather than outpatient follow-up due to symptomatic episodes. 06/30 16:20: Spoke with Dr. Natarajan at [facility]. Accepts patient for high priority transfer. Awaiting bed availability. (4) Diabetes mellitus: Code(s): E11.9 - Type 2 diabetes mellitus without complications Status: Acute Assessment and Plan: A1c is 7.6. Home insulin regimen consist of 80 units Lantus q.h.s. with NovoLog 12 units a.m. 25 units with lunch and 25 units with dinner. Patient states he does not believe in diabetic diet or dietary modifications. Continue with Accu-Cheks, sliding scale insulin, hypoglycemic protocol Home metformin on hold Blood sugars are poorly controlled. Increase Lantus to 55 units Lantus qHS with novolog 18 units scheduled with meals Monitor glucose trends closely (5) Benign essential HTN: Code(s): I10 - Essential (primary) hypertension Status: Acute Assessment and Plan: Blood pressure is stable and patient is asymptomatic. BP parameters as noted above. Stopped home lisinopril. Monitor BP trends (6) CKD (chronic kidney disease): Code(s): N18.9 - Chronic kidney disease, unspecified Status: Acute Assessment and Plan: Patient established with Nephrology. Renal function is consistent with baseline. Plan COVID PCR remains positive following acute COVID infection 1 month prior. No need for isolation precautions. Patient maintaining adequate O2 saturations. No need for further evaluation or monitoring. Subjective Date/time seen: 06/30/22 16:52 Interval history: Date of service: 06/29/2022 Landen Eaton is a 77 year old male with a history of carotid atherosclerosis, HTN, hyperlipidemia, type 2 diabetes mellitus, and recent CVA 6 weeks
[2022-06-30 17:03] LABS: Glucose Point of Care 233 mg/dl (65-105)
[2022-06-30] MEDS: INSULIN ASPART (*BKC) 100 UNITS/ML 18 UNITS SUB-Q (17:15)
[2022-06-30] MEDS: INSULIN GLARGINE (*BKC) 100 UNITS/ML 55 UNITS SUB-Q (21:02)
[2022-06-30] MEDS: ATORVASTATIN 40 MG TABLET 80 MG PO (21:03)
[2022-06-30] MEDS: PANTOPRAZOLE 40 MG TABLET PO (21:03)
[2022-06-30 21:28] LABS: Glucose Point of Care 171 mg/dl (65-105)
[2022-07-01] VITALS (7 sets, daily range): BP systolic 131–148; BP diastolic 58–75; PULSE 61–73; RESP 17–19; TEMP 36.2–36.8; O2SAT 97–100
[2022-07-01 06:53] LABS: Hematocrit 38.7 % (42.0-52.0); Hemoglobin 13.5 g/dL (14.0-18.0); Mean Corpuscular HGB Conc 34.9 g/dl (32-36); Mean Corpuscular Hemoglobin 30.8 pg (26-34); Mean Corpuscular Volume 88.2 fl (80-100); Mean Platelet Volume 9.2 fl (7.4-10.4); Platelet Count Result 182 k/mm3 (150-375); Red Blood Count 4.39 M/mm3 (4.6-6.20); White Blood Count 8.1 K/mm3 (4.5-10.0)
[2022-07-01 07:10] LABS: Anion Gap 11 mmol/L (8-16); Blood Urea Nitrogen 26 mg/dL (9-20); Calcium 9.1 mg/dL (8.4-10.2); Carbon Dioxide 25 mmol/L (22-30); Chloride 105 mmol/L (98-107); Estimated Glomerular Filt Rate 54; Glucose 127 mg/dL (65-110); Potassium 4.1 mmol/L (3.4-5.0); Sodium 141 mmol/L (137-145)
[2022-07-01 08:05] LABS: Glucose Point of Care 128 mg/dl (65-105)
[2022-07-01] MEDS: CLOPIDOGREL BISULFATE 75 MG TABLET PO (08:33)
[2022-07-01] MEDS: EMPAGLIFLOZIN 12.5 MG TABLET PO (08:33)
[2022-07-01] MEDS: PSYLLIUM POWDER PACKET 1 PACKET BY MOUTH (08:33)
[2022-07-01] MEDS: MULTIVITAMINS THERAPEUTIC TAB (*BKC) 1 TABLET PO (08:33)
[2022-07-01] MEDS: ASPIRIN 81 MG ENTERIC TABLET PO (08:33)
[2022-07-01] MEDS: INSULIN ASPART (*BKC) 100 UNITS/ML 18 UNITS SUB-Q ×2 (08:33→11:47)
--- NOTE | 2022-07-01 10:00 | PM.IMPN ---
Progress Note: A&P Assessment and Plan (1) Unresponsiveness: Code(s): R41.89 - Other symptoms and signs involving cognitive functions and awareness Status: Acute Assessment and Plan: Noted episode of decreased responsiveness witnessed by family, duration not entirely clear likely consistent with syncopal event, most likely related to near carotid occlusion see plan below appreciate neurology consultation head/neck CTA does not show any acute findings echocardiogram with normal EF 60-65%, grade 1 diastolic dysfunction, no significant valvular disease EEG with findings consistent of mild encephalopathy, no epileptiform discharges. (2) Chronic left arterial ischemic stroke, ICA (internal carotid artery): Code(s): I69.30 - Unspecified sequelae of cerebral infarction Status: Acute Assessment and Plan: history of CVA 6 weeks ago, evaluated at outside facility. does not seem to have any major residual deficits brain MRI showed subacute vs chronic infarcts involving left occipital lobe, left insula, left parietal lobe, and left thalamus continue aspirin, Plavix, atorvastatin Allow for permissive hypertension. Avoid hypotension, recommended MAP 65-70. Do not treat for SBP <180 per [facility] neuro stone rubber recommendations. Keep well hydrated. (3) ICAO (internal carotid artery occlusion): Code(s): I65.29 - Occlusion and stenosis of unspecified carotid artery Status: Acute Assessment and Plan: CTA reveals new diffuse decreased caliber throughout the extracranial and intracranial left internal carotid artery secondary to likely flow limiting near occlusion stenosis at the left carotid bulb with 10% stenosis of the right carotid bulb Neurology recommends evaluation by vascular surgery or neuro interventionalist given CVA and syncopal episodes. Patient was evaluated by Dr. Ashley at [facility] in [place] (vascular surgery), surgery was not indicated at that time. Spoke with [facility] neurointerventionalist, report patient may be candidate for stent, however would need to consider angiogram for further evaluation. Recommends inpatient transfer rather than outpatient follow-up due to symptomatic episodes. 06/30 16:20: Spoke with Dr. Natarajan at [facility]. Accepts patient for high priority transfer. Awaiting bed availability. (4) Diabetes mellitus: Code(s): E11.9 - Type 2 diabetes mellitus without complications Status: Acute Assessment and Plan: Current Glucose is 127 A1c is 7.6. Home insulin regimen consist of 80 units Lantus q.h.s. with NovoLog 12 units a.m. 25 units with lunch and 25 units with dinner. Patient states he does not believe in diabetic diet or dietary modifications. Continue with Accu-Cheks, sliding scale insulin, hypoglycemic protocol Home metformin on hold Blood sugars are poorly controlled. Increase Lantus to 55 units Lantus qHS with novolog 18 units scheduled with meals Monitor glucose trends closely (5) Benign essential HTN: Code(s): I10 - Essential (primary) hypertension Status: Acute Assessment and Plan: Current BP is 148/58 Blood pressure is stable and patient is asymptomatic. BP parameters as noted above. Stopped home lisinopril. Monitor BP trends (6) CKD (chronic kidney disease): Code(s): N18.9 - Chronic kidney disease, unspecified Status: Acute Assessment and Plan: Patient established with Nephrology. Renal function is consistent with baseline. Current Baseline is 1.10-1.30 Current Cr is 1.30 Plan COVID PCR remains positive following acute COVID infection 1 month prior. No need for isolation precautions. Patient maintaining adequate O2 saturations. No need for further evaluation or monitoring. Time Spent With Patient Time with patient: Greater than 35 minutes Subjective Date/time seen: 07/01/22 10:00 Interval history: 07/01/22 1
--- NOTE | 2022-07-01 10:00 | P.PNIM_ITS ---
Progress Note: A&P Assessment and Plan (1) Unresponsiveness: Code(s): R41.89 - Other symptoms and signs involving cognitive functions and awareness Status: Acute Assessment and Plan: * Noted episode of decreased responsiveness witnessed by family, duration not entirely clear * likely consistent with syncopal event, most likely related to near carotid occlusion * see plan below * appreciate neurology consultation * head/neck CTA does not show any acute findings * echocardiogram with normal EF 60-65%, grade 1 diastolic dysfunction, no significant valvular disease * EEG with findings consistent of mild encephalopathy, no epileptiform discharges. (2) Chronic left arterial ischemic stroke, ICA (internal carotid artery): Code(s): I69.30 - Unspecified sequelae of cerebral infarction Status: Acute Assessment and Plan: * history of CVA 6 weeks ago, evaluated at outside facility. * does not seem to have any major residual deficits * brain MRI showed subacute vs chronic infarcts involving left occipital lobe, left insula, left parietal lobe, and left thalamus * continue aspirin, Plavix, atorvastatin * Allow for permissive hypertension. Avoid hypotension, recommended MAP 65- 70. Do not treat for SBP <180 per [facility] neuro geriatric physical therapist recommendations. Keep well hydrated. (3) ICAO (internal carotid artery occlusion): Code(s): I65.29 - Occlusion and stenosis of unspecified carotid artery Status: Acute Assessment and Plan: * CTA reveals new diffuse decreased caliber throughout the extracranial and intracranial left internal carotid artery secondary to likely flow limiting near occlusion stenosis at the left carotid bulb with 10% stenosis of the right carotid bulb * Neurology recommends evaluation by vascular surgery or neuro interventionalist given CVA and syncopal episodes. * Patient was evaluated by Dr. Ashley at [facility] in [place] (vascular surgery), surgery was not indicated at that time. * Spoke with [facility] neurointerventionalist, report patient may be candidate for stent, however would need to consider angiogram for further evaluation. * Recommends inpatient transfer rather than outpatient follow-up due to symptomatic episodes. * 06/30 16:20: Spoke with Dr. Natarajan at [facility]. Accepts patient for high priority transfer. Awaiting bed availability. (4) Diabetes mellitus: Code(s): E11.9 - Type 2 diabetes mellitus without complications Status: Acute Assessment and Plan: * Current Glucose is 127 * A1c is 7.6. * Home insulin regimen consist of 80 units Lantus q.h.s. with NovoLog 12 units a .m. 25 units with lunch and 25 units with dinner. Patient states he does not believe in diabetic diet or dietary modifications. * Continue with Accu-Cheks, sliding scale insulin, hypoglycemic protocol * Home metformin on hold * Blood sugars are poorly controlled. Increase Lantus to 55 units Lantus qHS with novolog 18 units scheduled with meals * Monitor glucose trends closely (5) Benign essential HTN: Code(s): I10 - Essential (primary) hypertension Status: Acute Assessment and Plan: * Current BP is 148/58 * Blood pressure is stable and patient is asymptomatic. * BP parameters as noted above. * Stopped home lisinopril. * Monitor BP trends (6) CKD (chronic kidney disease): Code(s): N18.9 - Chronic kidney disease, unspecified Status: Acute Assessment and Plan: * Patient established with Nephrology. * Renal function is con
[2022-07-01 11:39] LABS: Glucose Point of Care 151 mg/dl (65-105)
[2022-07-01 16:34] LABS: Glucose Point of Care 97 mg/dl (65-105)
[2022-07-01 21:45] LABS: Glucose Point of Care 232 mg/dl (65-105)
[2022-07-01] MEDS: INSULIN GLARGINE (*BKC) 100 UNITS/ML 55 UNITS SUB-Q (21:49)
[2022-07-01] MEDS: PANTOPRAZOLE 40 MG TABLET PO (21:50)
[2022-07-01] MEDS: ATORVASTATIN 40 MG TABLET 80 MG PO (21:50)
[2022-07-02 06:00] VITALS: BP 131/67; PULSE 59; RESP 20; TEMP 35.8; O2SAT 98
[2022-07-02 06:59] LABS: Basophils Absolute Auto 0.1 K/mm3 (0.0-0.1); Basophils Percent Auto 1.2 % (0.2-1.2); Eosinophils Absolute Auto 0.6 K/mm3 (0-0.3); Eosinophils Percent Auto 8.7 % (0-4.4); Hematocrit 39.1 % (42.0-52.0); Hemoglobin 13.3 g/dL (14.0-18.0); Immature Granulocyte Absolute 0.03 K/mm3 (0.00-0.031); Immature Granulocyte Percent A 0.4 % (0-0.5); Lymphocytes Absolute Auto 1.93 K/mm3 (0.9-3.2); Lymphocytes Percent Auto 26.6 % (18.3-44.2); Mean Corpuscular Hemoglobin 30.7 pg (26-34); Mean Corpuscular Volume 90.3 fl (80-100); Mean Platelet Volume 9.1 fl (7.4-10.4); Monocytes Absolute Auto 0.7 K/mm3 (0.1-0.6); Monocytes Percent Auto 9.8 % (2.6-8.5); Neutrophils Absolute Auto 3.9 K/mm3 (1.3-6.7); Neutrophils Percent Auto 53.3 % (45.5-73.1); Platelet Count Result 166 k/mm3 (150-375); Red Blood Count 4.33 M/mm3 (4.6-6.20); Red Cell Distribution Width 13.1 % (11.5-14.5); White Blood Count 7.3 K/mm3 (4.5-10.0)
[2022-07-02 07:27] LABS: Alanine Aminotransferase 24 U/L (6-50); Albumin Level 4.1 g/dL (3.5-5.1); Alkaline Phosphatase 85 U/L (38-126); Anion Gap 13 mmol/L (8-16); Aspartate Amino Transferase 24 U/L (17-59); Bilirubin,Total 0.5 mg/dL (0.2-1.3); Blood Urea Nitrogen 26 mg/dL (9-20); Calcium 8.9 mg/dL (8.4-10.2); Carbon Dioxide 25 mmol/L (22-30); Chloride 102 mmol/L (98-107); Estimated Glomerular Filt Rate 49; Glucose 154 mg/dL (65-110); Potassium 4.1 mmol/L (3.4-5.0); Sodium 140 mmol/L (137-145)
[2022-07-02 08:17] LABS: Glucose Point of Care 156 mg/dl (65-105)
[2022-07-02] MEDS: ASPIRIN 81 MG ENTERIC TABLET PO (08:54)
[2022-07-02] MEDS: PSYLLIUM POWDER PACKET 1 PACKET BY MOUTH (08:54)
[2022-07-02] MEDS: MULTIVITAMINS THERAPEUTIC TAB (*BKC) 1 TABLET PO (08:54)
[2022-07-02] MEDS: CLOPIDOGREL BISULFATE 75 MG TABLET PO (08:54)
[2022-07-02] MEDS: EMPAGLIFLOZIN 12.5 MG TABLET PO (08:54)
[2022-07-02] MEDS: INSULIN ASPART (*BKC) 100 UNITS/ML 18 UNITS SUB-Q ×3 (08:55→17:15)
--- NOTE | 2022-07-02 11:42 | WPDNEUROPN ---
Progress Note: A&P Assessment and Plan (1) Chronic left arterial ischemic stroke, ICA (internal carotid artery): Code(s): I69.30 - Unspecified sequelae of cerebral infarction Status: Acute (2) ICAO (internal carotid artery occlusion): Code(s): I65.29 - Occlusion and stenosis of unspecified carotid artery Status: Acute (3) Benign essential HTN: Code(s): I10 - Essential (primary) hypertension Status: Acute (4) Hyperlipidemia: Code(s): E78.5 - Hyperlipidemia, unspecified Status: Acute Plan Mr. Eaton is a 77 year old male with a history of HTN, DM type 2, carotid disease with near occlusion of L ICA (intracranial and extracranial), and prior left temporal/thalamic stroke presenting with episode of unresponsiveness and left sided weakness. MRI showed subacute vs chronic infarct in the left parietal, occipital, insula, and thalamus. Prior stroke was documented to be in left temporal region. Etiology is likely large vessel disease given significant L ICA stenosis. As for the episodes of decreased consciousness, suspect that they are likely syncopal events due to carotid stenosis. - Continue ASA, Plavix, and Lipitor 80mg - Patient has been accepted as transfer to [facility] for further evaluation by interventional neurology, waiting for a bed Subjective Date/time seen: 07/02/22 11:42 Interval history: Landen Eaton is a 77 year old male with a history of type 2 DM, HTN, carotid disease, and prior strokes presenting to the ED due to new weakness. Patient had a stroke about 6 weeks ago? in the left temporal area and was also found to have near L internal carotid artery occlusion. He has been evaluated by vascular surgery in the past and was not a candidate for surgical intervention. He was discharged with DAPT and high dose atorvastatin. Per chart review, patient did not have any residual deficits after the stroke other than gait dysfunction. On 06/29 patient was walking with his when he complained of left sided numbness and then became unconscious. denies any abnormal movements, but he was staring off and not responding to stimuli. Patient does not recall the event. Per daughter he had a similar episode last month. EMS was called and he was minimally responsive at that time and appeared to have left sided weakness. No incontinence or tongue biting. On arrival to ED, patient was still minimally responsive, but eventually regained consciousness. CT head showed old L thalamic infarct. CTA shows near occlusion of left ICA and 10% stenosis of R ICA. MRI brain showed subacute vs chronic infarct in the left parietal, occipital, insula, and thalamus. Patient denies any complaints this morning, feeling well. Has been ambulating without problems. No speech issues. Review of Systems Constitutional: Constitutional: Reports weakness Eyes: Eyes: Reports no additional eye complaints ENT: Reports system reviewed and no additional complaints, except as documented Cardiovascular: Cardiovascular: Reports no additional cardiovascular complaints Respiratory: Respiratory: Reports no additional respiratory complaints Gastrointestinal: Gastrointestinal: Reports no additional gastrointestinal complaints Genitourinary: Genitourinary: Reports no additional male genitourinary complaints Musculoskeletal: Musculoskeletal: Reports no additional musculoskeletal complaints Integumentary/Breasts: Skin/Breast: Reports system reviewed and no additional complaints, except as docu Neurologic: Reports as per HPI Psychiatric: Psychiatric: Reports no additional psychiatric complaints Exam Const: General: comfortable and no acute distress HENMT: Mouth: Yes moist mucous membranes Eyes: General: appearance normal, both eyes and all related structures Pupils: Equal, round and reactive pupils present EOM: EOMs intact bilaterally Resp: Effort & Inspection: normal respiratory effort Auscultation: clear to ausculta
[2022-07-02 11:51] LABS: Glucose Point of Care 155 mg/dl (65-105)
--- NOTE | 2022-07-02 13:00 | P.PNIM_ITS ---
Progress Note: A&P Assessment and Plan (1) Unresponsiveness: Code(s): R41.89 - Other symptoms and signs involving cognitive functions and awareness Status: Acute Assessment and Plan: * Noted episode of decreased responsiveness witnessed by family, duration not entirely clear * likely consistent with syncopal event, most likely related to near carotid occlusion * see plan below * appreciate neurology consultation * head/neck CTA does not show any acute findings * echocardiogram with normal EF 60-65%, grade 1 diastolic dysfunction, no significant valvular disease * EEG with findings consistent of mild encephalopathy, no epileptiform discharges. * Resolved at this time (2) Chronic left arterial ischemic stroke, ICA (internal carotid artery): Code(s): I69.30 - Unspecified sequelae of cerebral infarction Status: Acute Assessment and Plan: * history of CVA 6 weeks ago, evaluated at outside facility. * does not seem to have any major residual deficits * brain MRI showed subacute vs chronic infarcts involving left occipital lobe, left insula, left parietal lobe, and left thalamus * continue aspirin, Plavix, atorvastatin * Allow for permissive hypertension. Avoid hypotension, recommended MAP 65- 70. Do not treat for SBP <180 per [facility] neuro firefighter marine recommendations. Keep well hydrated. (3) ICAO (internal carotid artery occlusion): Code(s): I65.29 - Occlusion and stenosis of unspecified carotid artery Status: Acute Assessment and Plan: * CTA reveals new diffuse decreased caliber throughout the extracranial and intracranial left internal carotid artery secondary to likely flow limiting near occlusion stenosis at the left carotid bulb with 10% stenosis of the right carotid bulb * Neurology recommends evaluation by vascular surgery or neuro interventionalist given CVA and syncopal episodes. * Patient was evaluated by Dr. Ashley at [facility] in [place] (vascular [facility]), surgery was not indicated at that time. * Spoke with [facility] neurointerventionalist, report patient may be candidate for stent, however would need to consider angiogram for further evaluation. * Recommends inpatient transfer rather than outpatient follow-up due to symptomatic episodes. * 06/30 16:20: Spoke with Dr. Natarajan at [facility]. Accepts patient for high priority transfer. Awaiting bed availability. Spoke with daughter patient and his and they will talk about possibly calling other facilities for transfer (4) Diabetes mellitus: Code(s): E11.9 - Type 2 diabetes mellitus without complications Status: Acute Assessment and Plan: * Current Glucose is 154 * A1c is 7.6. * Home insulin regimen consist of 80 units Lantus q.h.s. with NovoLog 12 units a.m. 25 units with lunch and 25 units with dinner. Patient states he does not believe in diabetic diet or dietary modifications. * Continue with Accu-Cheks, sliding scale insulin, hypoglycemic protocol * Home metformin on hold * Blood sugars are poorly controlled. Increase Lantus to 55 units Lantus qHS with novolog 18 units scheduled with meals * Monitor glucose trends closely (5) Benign essential HTN: Code(s): I10 - Essential (primary) hypertension Status: Acute Assessment and Plan: * Current BP is 131/67 * Blood pressure is stable and patient is asymptomatic. * BP parameters as noted above. * Stopped home lisinopril. * Monitor BP trends
--- NOTE | 2022-07-02 13:00 | PM.IMPN ---
Progress Note: A&P Assessment and Plan (1) Unresponsiveness: Code(s): R41.89 - Other symptoms and signs involving cognitive functions and awareness Status: Acute Assessment and Plan: Noted episode of decreased responsiveness witnessed by family, duration not entirely clear likely consistent with syncopal event, most likely related to near carotid occlusion see plan below appreciate neurology consultation head/neck CTA does not show any acute findings echocardiogram with normal EF 60-65%, grade 1 diastolic dysfunction, no significant valvular disease EEG with findings consistent of mild encephalopathy, no epileptiform discharges. Resolved at this time (2) Chronic left arterial ischemic stroke, ICA (internal carotid artery): Code(s): I69.30 - Unspecified sequelae of cerebral infarction Status: Acute Assessment and Plan: history of CVA 6 weeks ago, evaluated at outside facility. does not seem to have any major residual deficits brain MRI showed subacute vs chronic infarcts involving left occipital lobe, left insula, left parietal lobe, and left thalamus continue aspirin, Plavix, atorvastatin Allow for permissive hypertension. Avoid hypotension, recommended MAP 65-70. Do not treat for SBP <180 per [facility] neuro mixing engineer recommendations. Keep well hydrated. (3) ICAO (internal carotid artery occlusion): Code(s): I65.29 - Occlusion and stenosis of unspecified carotid artery Status: Acute Assessment and Plan: CTA reveals new diffuse decreased caliber throughout the extracranial and intracranial left internal carotid artery secondary to likely flow limiting near occlusion stenosis at the left carotid bulb with 10% stenosis of the right carotid bulb Neurology recommends evaluation by vascular surgery or neuro interventionalist given CVA and syncopal episodes. Patient was evaluated by Dr. Ashley at [facility] (vascular surgery), surgery was not indicated at that time. Spoke with [facility] neurointerventionalist, report patient may be candidate for stent, however would need to consider angiogram for further evaluation. Recommends inpatient transfer rather than outpatient follow-up due to symptomatic episodes. 06/30 16:20: Spoke with Dr. Natarajan at [facility]. Accepts patient for high priority transfer. Awaiting bed availability. Spoke with daughter patient and his and they will talk about possibly calling other facilities for transfer (4) Diabetes mellitus: Code(s): E11.9 - Type 2 diabetes mellitus without complications Status: Acute Assessment and Plan: Current Glucose is 154 A1c is 7.6. Home insulin regimen consist of 80 units Lantus q.h.s. with NovoLog 12 units a.m. 25 units with lunch and 25 units with dinner. Patient states he does not believe in diabetic diet or dietary modifications. Continue with Accu-Cheks, sliding scale insulin, hypoglycemic protocol Home metformin on hold Blood sugars are poorly controlled. Increase Lantus to 55 units Lantus qHS with novolog 18 units scheduled with meals Monitor glucose trends closely (5) Benign essential HTN: Code(s): I10 - Essential (primary) hypertension Status: Acute Assessment and Plan: Current BP is 131/67 Blood pressure is stable and patient is asymptomatic. BP parameters as noted above. Stopped home lisinopril. Monitor BP trends (6) CKD (chronic kidney disease): Code(s): N18.9 - Chronic kidney disease, unspecified Status: Acute Assessment and Plan: Patient established with Nephrology. Renal function is consistent with baseline. Current Baseline is 1.10-1.30 Current Cr is 1.40 Plan COVID PCR remains positive following acute COVID infection 1 month prior. No need for isolation precautions. Patient maintaining adequate O2 saturations. No need for further ev
[2022-07-02 14:00] VITALS: BP 142/58; PULSE 70; RESP 20; TEMP 36.2; O2SAT 100
[2022-07-02 16:50] LABS: Glucose Point of Care 186 mg/dl (65-105)
[2022-07-02] MEDS: PANTOPRAZOLE 40 MG TABLET PO (21:33)
[2022-07-02] MEDS: ATORVASTATIN 40 MG TABLET 80 MG PO (21:33)
[2022-07-02] MEDS: INSULIN GLARGINE (*BKC) 100 UNITS/ML 55 UNITS SUB-Q (21:35)
[2022-07-02 21:50] LABS: Glucose Point of Care 264 mg/dl (65-105)
[2022-07-02 22:00] VITALS: BP 138/58; PULSE 67; RESP 19; TEMP 36.4; O2SAT 96
[2022-07-03 06:00] VITALS: BP 113/94; PULSE 77; RESP 18; TEMP 36.4; O2SAT 98
--- NOTE | 2022-07-03 07:15 | PM.IMPN ---
Progress Note: A&P Assessment and Plan (1) Unresponsiveness: Code(s): R41.89 - Other symptoms and signs involving cognitive functions and awareness Status: Acute Assessment and Plan: Noted episode of decreased responsiveness witnessed by family, duration not entirely clear likely consistent with syncopal event, most likely related to near carotid occlusion see plan below appreciate neurology consultation head/neck CTA shows near occlusion of the left carotid artery, with collateral from the right echocardiogram with normal EF 60-65%, grade 1 diastolic dysfunction, no significant valvular disease EEG with findings consistent of mild encephalopathy, no epileptiform discharges. Resolved at this time (2) Chronic left arterial ischemic stroke, ICA (internal carotid artery): Code(s): I69.30 - Unspecified sequelae of cerebral infarction Status: Acute Assessment and Plan: history of CVA 6 weeks ago, evaluated at outside facility. does not seem to have any major residual deficits brain MRI showed subacute vs chronic infarcts involving left occipital lobe, left insula, left parietal lobe, and left thalamus continue aspirin, Plavix, atorvastatin Allow for permissive hypertension. Avoid hypotension, recommended MAP 65-70. Do not treat for SBP <180 per [facility] neuro fire protection inspector recommendations. Keep well hydrated. (3) ICAO (internal carotid artery occlusion): Code(s): I65.29 - Occlusion and stenosis of unspecified carotid artery Status: Acute Assessment and Plan: CTA reveals new diffuse decreased caliber throughout the extracranial and intracranial left internal carotid artery secondary to likely flow limiting near occlusion stenosis at the left carotid bulb with 10% stenosis of the right carotid bulb Neurology recommends evaluation by vascular surgery or neuro interventionalist given CVA and syncopal episodes. Patient was evaluated by Dr. Ashley at [facility] (vascular surgery), surgery was not indicated at that time. Spoke with [facility] neurointerventionalist, report patient may be candidate for stent, however would need to consider angiogram for further evaluation. Recommends inpatient transfer rather than outpatient follow-up due to symptomatic episodes. 06/30 16:20: Spoke with Dr. Natarajan at [facility]. Accepts patient for high priority transfer. Awaiting bed availability. (4) Diabetes mellitus: Code(s): E11.9 - Type 2 diabetes mellitus without complications Status: Acute Assessment and Plan: Current Glucose is 172 A1c is 7.6. Home insulin regimen consist of 80 units Lantus q.h.s. with NovoLog 12 units a.m. 25 units with lunch and 25 units with dinner. Patient states he does not believe in diabetic diet or dietary modifications. Continue with Accu-Cheks, sliding scale insulin, hypoglycemic protocol Home metformin on hold Blood sugars are poorly controlled. Increase Lantus to 55 units Lantus qHS with novolog 18 units scheduled with meals Monitor glucose trends closely (5) Benign essential HTN: Code(s): I10 - Essential (primary) hypertension Status: Acute Assessment and Plan: Current BP is 113/94 Blood pressure is stable and patient is asymptomatic. BP parameters as noted above. Stopped home lisinopril. Monitor BP trends (6) CKD (chronic kidney disease): Code(s): N18.9 - Chronic kidney disease, unspecified Status: Acute Assessment and Plan: Patient established with Nephrology. Renal function is consistent with baseline. Current Baseline is 1.10-1.30 Current Cr is 1.40 Time Spent With Patient Time with patient: Greater than 35 minutes Subjective Date/time seen: 07/03/22 07:15 Interval history: 07/03/2215 Patient remains stable today. He stated that he is feeling ok today. he did state that he
--- NOTE | 2022-07-03 07:15 | P.PNIM_ITS ---
Progress Note: A&P Assessment and Plan (1) Unresponsiveness: Code(s): R41.89 - Other symptoms and signs involving cognitive functions and awareness Status: Acute Assessment and Plan: * Noted episode of decreased responsiveness witnessed by family, duration not entirely clear * likely consistent with syncopal event, most likely related to near carotid occlusion * see plan below * appreciate neurology consultation * head/neck CTA shows near occlusion of the left carotid artery, with collateral from the right * echocardiogram with normal EF 60-65%, grade 1 diastolic dysfunction, no significant valvular disease * EEG with findings consistent of mild encephalopathy, no epileptiform discharges. * Resolved at this time (2) Chronic left arterial ischemic stroke, ICA (internal carotid artery): Code(s): I69.30 - Unspecified sequelae of cerebral infarction Status: Acute Assessment and Plan: * history of CVA 6 weeks ago, evaluated at outside facility. * does not seem to have any major residual deficits * brain MRI showed subacute vs chronic infarcts involving left occipital lobe, left insula, left parietal lobe, and left thalamus * continue aspirin, Plavix, atorvastatin * Allow for permissive hypertension. Avoid hypotension, recommended MAP 65- 70. Do not treat for SBP <180 per [facility] neuro dry chain operator recommendations. * Keep well hydrated. (3) ICAO (internal carotid artery occlusion): Code(s): I65.29 - Occlusion and stenosis of unspecified carotid artery Status: Acute Assessment and Plan: * CTA reveals new diffuse decreased caliber throughout the extracranial and intracranial left internal carotid artery secondary to likely flow limiting near occlusion stenosis at the left carotid bulb with 10% stenosis of the right carotid bulb * Neurology recommends evaluation by vascular surgery or neuro interventionalist given CVA and syncopal episodes. * Patient was evaluated by Dr. Ashley at [facility] in [place] (vascular surgery), surgery was not indicated at that time. * Spoke with [facility] neurointerventionalist, report patient may be candidate for stent, however would need to consider angiogram for further evaluation. * Recommends inpatient transfer rather than outpatient follow-up due to symptomatic episodes. * 06/30 16:20: Spoke with Dr. Natarajan at [facility]. Accepts patient for high priority transfer. Awaiting bed availability. (4) Diabetes mellitus: Code(s): E11.9 - Type 2 diabetes mellitus without complications Status: Acute Assessment and Plan: * Current Glucose is 172 * A1c is 7.6. * Home insulin regimen consist of 80 units Lantus q.h.s. with NovoLog 12 units a.m. 25 units with lunch and 25 units with dinner. Patient states he does not believe in diabetic diet or dietary modifications. * Continue with Accu-Cheks, sliding scale insulin, hypoglycemic protocol * Home metformin on hold * Blood sugars are poorly controlled. Increase Lantus to 55 units Lantus qHS with novolog 18 units scheduled with meals * Monitor glucose trends closely (5) Benign essential HTN: Code(s): I10 - Essential (primary) hypertension Status: Acute Assessment and Plan: * Current BP is 113/94 * Blood pressure is stable and patient is asymptomatic. * BP parameters as noted above. * Stopped home lisinopril. * Monitor BP trends (6) CKD (chronic kidney disease):
[2022-07-03 07:50] LABS: Hematocrit 39.8 % (42.0-52.0); Hemoglobin 13.5 g/dL (14.0-18.0); Mean Corpuscular HGB Conc 33.9 g/dl (32-36); Mean Corpuscular Hemoglobin 30.4 pg (26-34); Mean Corpuscular Volume 89.6 fl (80-100); Mean Platelet Volume 9.8 fl (7.4-10.4); Platelet Count Result 194 k/mm3 (150-375); Red Blood Count 4.44 M/mm3 (4.6-6.20); Red Cell Distribution Width 13.1 % (11.5-14.5); White Blood Count 8.8 K/mm3 (4.5-10.0)
[2022-07-03 07:58] LABS: Glucose Point of Care 172 mg/dl (65-105)
[2022-07-03 08:03] LABS: Alanine Aminotransferase 28 U/L (6-50); Albumin Level 4.6 g/dL (3.5-5.1); Alkaline Phosphatase 111 U/L (38-126); Anion Gap 12 mmol/L (8-16); Aspartate Amino Transferase 27 U/L (17-59); Bilirubin,Total 0.6 mg/dL (0.2-1.3); Blood Urea Nitrogen 27 mg/dL (9-20); Calcium 9.5 mg/dL (8.4-10.2); Carbon Dioxide 28 mmol/L (22-30); Chloride 100 mmol/L (98-107); Estimated Glomerular Filt Rate 49; Glucose 183 mg/dL (65-110); Magnesium 2.1 mg/dL (1.6-2.3); Potassium 4.2 mmol/L (3.4-5.0); Sodium 140 mmol/L (137-145)
[2022-07-03] MEDS: MULTIVITAMINS THERAPEUTIC TAB (*BKC) 1 TABLET PO (08:35)
[2022-07-03] MEDS: ASPIRIN 81 MG ENTERIC TABLET PO (08:35)
[2022-07-03] MEDS: CLOPIDOGREL BISULFATE 75 MG TABLET PO (08:35)
[2022-07-03] MEDS: EMPAGLIFLOZIN 12.5 MG TABLET PO (08:35)
[2022-07-03] MEDS: PSYLLIUM POWDER PACKET 1 PACKET BY MOUTH (08:35)
[2022-07-03 11:48] LABS: Glucose Point of Care 338 mg/dl (65-105)
[2022-07-03] MEDS: INSULIN ASPART (*BKC) 100 UNITS/ML 18 UNITS SUB-Q ×2 (11:52→16:47)
[2022-07-03] MEDS: INSULIN ASPART (*BKC) 100 UNITS/ML SUB-Q (11:52)
[2022-07-03 14:00] VITALS: BP 138/71; PULSE 70; RESP 20; TEMP 36.3; O2SAT 97
[2022-07-03 16:25] LABS: Glucose Point of Care 178 mg/dl (65-105)
[2022-07-03] MEDS: ATORVASTATIN 40 MG TABLET 80 MG PO (21:07)
[2022-07-03] MEDS: PANTOPRAZOLE 40 MG TABLET PO (21:07)
[2022-07-03] MEDS: INSULIN GLARGINE (*BKC) 100 UNITS/ML 55 UNITS SUB-Q (21:11)
[2022-07-03 21:14] LABS: Glucose Point of Care 228 mg/dl (65-105)
[2022-07-03 22:00] VITALS: BP 130/65; PULSE 62; RESP 14; TEMP 36.2; O2SAT 98
[2022-07-04 06:00] VITALS: BP 135/75; PULSE 71; RESP 14; TEMP 36.5; O2SAT 99
[2022-07-04 08:14] LABS: Glucose Point of Care 121 mg/dl (65-105)
[2022-07-04] MEDS: PSYLLIUM POWDER PACKET 1 PACKET BY MOUTH (08:58)
[2022-07-04] MEDS: CLOPIDOGREL BISULFATE 75 MG TABLET PO (08:58)
[2022-07-04] MEDS: ASPIRIN 81 MG ENTERIC TABLET PO (08:58)
[2022-07-04] MEDS: EMPAGLIFLOZIN 12.5 MG TABLET PO (08:58)
[2022-07-04] MEDS: MULTIVITAMINS THERAPEUTIC TAB (*BKC) 1 TABLET PO (08:58)
--- NOTE | 2022-07-04 09:00 | P.PNIM_ITS ---
Progress Note: A&P Assessment and Plan (1) Unresponsiveness: Code(s): R41.89 - Other symptoms and signs involving cognitive functions and awareness Status: Acute Assessment and Plan: * Noted episode of decreased responsiveness witnessed by family, duration not entirely clear * likely consistent with syncopal event, most likely related to near carotid occlusion * see plan below * appreciate neurology consultation * head/neck CTA shows near occlusion of the left carotid artery, with collateral from the right * echocardiogram with normal EF 60-65%, grade 1 diastolic dysfunction, no significant valvular disease * EEG with findings consistent of mild encephalopathy, no epileptiform discharges. * Resolved at this time (2) Chronic left arterial ischemic stroke, ICA (internal carotid artery): Code(s): I69.30 - Unspecified sequelae of cerebral infarction Status: Acute Assessment and Plan: * history of CVA 6 weeks ago, evaluated at outside facility. * does not seem to have any major residual deficits * brain MRI showed subacute vs chronic infarcts involving left occipital lobe, left insula, left parietal lobe, and left thalamus * continue aspirin, Plavix, atorvastatin * Allow for permissive hypertension. Avoid hypotension, recommended MAP 65- 70. Do not treat for SBP <180 per [facility] neuro professional development director recommendations. * Keep well hydrated. (3) ICAO (internal carotid artery occlusion): Code(s): I65.29 - Occlusion and stenosis of unspecified carotid artery Status: Acute Assessment and Plan: * CTA reveals new diffuse decreased caliber throughout the extracranial and intracranial left internal carotid artery secondary to likely flow limiting near occlusion stenosis at the left carotid bulb with 10% stenosis of the right carotid bulb * Neurology recommends evaluation by vascular surgery or neuro interventionalist given CVA and syncopal episodes. * Patient was evaluated by Dr. Ashley at [facility] in [place] (vascular surgery), surgery was not indicated at that time. * Spoke with [facility] neurointerventionalist, report patient may be candidate for stent, however would need to consider angiogram for further evaluation. * Recommends inpatient transfer rather than outpatient follow-up due to symptomatic episodes. * 06/30 16:20: Spoke with Dr. Natarajan at [facility]. Accepts patient for high priority transfer. Awaiting bed availability. (4) Diabetes mellitus: Code(s): E11.9 - Type 2 diabetes mellitus without complications Status: Acute Assessment and Plan: * Current Glucose is 172 * A1c is 7.6. * Home insulin regimen consist of 80 units Lantus q.h.s. with NovoLog 12 units a.m. 25 units with lunch and 25 units with dinner. Patient states he does not believe in diabetic diet or dietary modifications. * Continue with Accu-Cheks, sliding scale insulin, hypoglycemic protocol * Home metformin on hold * Blood sugars are poorly controlled. Increase Lantus to 55 units Lantus qHS with novolog 18 units scheduled with meals * Monitor glucose trends closely (5) Benign essential HTN: Code(s): I10 - Essential (primary) hypertension Status: Acute Assessment and Plan: * Current BP is 113/94 * Blood pressure is stable and patient is asymptomatic. * BP parameters as noted above. * Stopped home lisinopril. * Monitor BP trends (6) CKD (chronic kidney disease):
--- NOTE | 2022-07-04 09:00 | PM.IMPN ---
Progress Note: A&P Assessment and Plan (1) Unresponsiveness: Code(s): R41.89 - Other symptoms and signs involving cognitive functions and awareness Status: Acute Assessment and Plan: Noted episode of decreased responsiveness witnessed by family, duration not entirely clear likely consistent with syncopal event, most likely related to near carotid occlusion see plan below appreciate neurology consultation head/neck CTA shows near occlusion of the left carotid artery, with collateral from the right echocardiogram with normal EF 60-65%, grade 1 diastolic dysfunction, no significant valvular disease EEG with findings consistent of mild encephalopathy, no epileptiform discharges. Resolved at this time (2) Chronic left arterial ischemic stroke, ICA (internal carotid artery): Code(s): I69.30 - Unspecified sequelae of cerebral infarction Status: Acute Assessment and Plan: history of CVA 6 weeks ago, evaluated at outside facility. does not seem to have any major residual deficits brain MRI showed subacute vs chronic infarcts involving left occipital lobe, left insula, left parietal lobe, and left thalamus continue aspirin, Plavix, atorvastatin Allow for permissive hypertension. Avoid hypotension, recommended MAP 65-70. Do not treat for SBP <180 per [facility] neuro stoker erector recommendations. Keep well hydrated. (3) ICAO (internal carotid artery occlusion): Code(s): I65.29 - Occlusion and stenosis of unspecified carotid artery Status: Acute Assessment and Plan: CTA reveals new diffuse decreased caliber throughout the extracranial and intracranial left internal carotid artery secondary to likely flow limiting near occlusion stenosis at the left carotid bulb with 10% stenosis of the right carotid bulb Neurology recommends evaluation by vascular surgery or neuro interventionalist given CVA and syncopal episodes. Patient was evaluated by Dr. Ashley at [facility] (vascular surgery), surgery was not indicated at that time. Spoke with [facility] neurointerventionalist, report patient may be candidate for stent, however would need to consider angiogram for further evaluation. Recommends inpatient transfer rather than outpatient follow-up due to symptomatic episodes. 06/30 16:20: Spoke with Dr. Natarajan at [facility]. Accepts patient for high priority transfer. Awaiting bed availability. (4) Diabetes mellitus: Code(s): E11.9 - Type 2 diabetes mellitus without complications Status: Acute Assessment and Plan: Current Glucose is 172 A1c is 7.6. Home insulin regimen consist of 80 units Lantus q.h.s. with NovoLog 12 units a.m. 25 units with lunch and 25 units with dinner. Patient states he does not believe in diabetic diet or dietary modifications. Continue with Accu-Cheks, sliding scale insulin, hypoglycemic protocol Home metformin on hold Blood sugars are poorly controlled. Increase Lantus to 55 units Lantus qHS with novolog 18 units scheduled with meals Monitor glucose trends closely (5) Benign essential HTN: Code(s): I10 - Essential (primary) hypertension Status: Acute Assessment and Plan: Current BP is 113/94 Blood pressure is stable and patient is asymptomatic. BP parameters as noted above. Stopped home lisinopril. Monitor BP trends (6) CKD (chronic kidney disease): Code(s): N18.9 - Chronic kidney disease, unspecified Status: Acute Assessment and Plan: Patient established with Nephrology. Renal function is consistent with baseline. Current Baseline is 1.10-1.30 Current Cr is 1.40 Subjective Date/time seen: 07/04/22899 Interval history: 07/04/22899 Patient is doing well today. Patient denies any chest pain, shortness a breath, nausea, vomiting, diarrhea, constipation, weakness or fatigue. Patient did st
[2022-07-04 11:46] LABS: Glucose Point of Care 252 mg/dl (65-105)
[2022-07-04] MEDS: INSULIN ASPART (*BKC) 100 UNITS/ML SUB-Q (12:15)
[2022-07-04] MEDS: INSULIN ASPART (*BKC) 100 UNITS/ML 18 UNITS SUB-Q (12:15)
--- NOTE | 2022-07-04 13:22 | WPDNEUROPN ---
Subjective Date/time seen: 07/04/22 13:22 Interval history: 77 years old right-handed male with ongoing history of 1. Hypertension 2. Type 2 diabetes mellitus 3. Large vessel disease with near occlusion of left ICA and previous left temporal thalamic stroke admitted to the hospital for the possibility of new stroke with clinical left lower extremity weakness versus seizure. Has been documented to have chronic left arterial ischemic stroke involving ICA, diabetes mellitus with chronic kidney disease considering the possibility of stroke resulting in the seizure and EEG was obtained which was normal and there was no evidence of any active seizure like discharge. Patient has been decrement to have right to left collateral circulation on CTA and treatment will be continued at present same with clopidogrel 75 mg daily atorvastatin 80 mg at night. Exam Const: General: cooperative, comfortable and alert Limitations: no limitations HENMT: Head: normocephalic Ears: hearing grossly normal bilaterally Face/Nose/Sinus: Normal external nose present Face and sinus: normal facial exam Eyes: General: appearance normal, both eyes and all related structures Visual Gil: normal visual gil by confrontation Alignment and Position: alignment normal Periorbital: periorbital findings normal Eyelids: eyelids normal Conjunctivae: conjunctivae normal Sclera: sclerae normal Cornea: corneas normal Pupils: Equal, round and reactive pupils present EOM: EOMs intact bilaterally Neck: Neck: full ROM Resp: Effort & Inspection: able to speak in complete sentences Auscultation: clear to auscultation bilaterally Cardio: Jugular venous distension: no JVD Rate: regular rate Rhythm: regular rhythm Neuro: General: oriented to person and oriented to place Cranial nerves: Yes CN's II-XII intact bilaterally Cognition (Neuro): normal cognition Speech: normal speech Motor exam (neuro): 5/5 motor strength present throughout Sensory Exam: normal sensation Deep tendon reflexes (DTR's): Right triceps reflex intensity grade: 1+, Left triceps reflex intensity grade: 1+, Rt Biceps (C5, C6): 1+, Left biceps reflex intensity grade: 1+, Right brachioradialis reflex intensity grade: 1+, Left brachioradialis reflex intensity grade: 1+, Right patellar reflex intensity grade: 1+, Left patellar reflex intensity grade: 1+, Right ankle reflex intensity grade: 1+ and Left ankle reflex intensity grade: 1+ Plantar Reflex Responses: downgoing: bilateral Coordination: [id number] test normal Extrem: General: full ROM Psych: Appearance: grossly normal Mental Status: mental status grossly normal Speech and movement: Normal speech and movement present Affect: normal affect Attitude: cooperative Thought process: Normal thought process present Thought content: Yes Normal thought content present Insight: Good insight present (Psych) Judgement: Good judgement present (Psych) Objective Data Vital Signs Vital Signs: Vital Signs - 24 hr 07/03/22 14:00 07/03/22 22:00 07/03/22 20:00 Temperature 36.3 C L 36.2 C L Pulse Rate 70 62 Respiratory Rate 20 14 Blood Pressure 138/71 130/65 Pulse Oximetry 97 98 Oxygen Delivery Room Air 07/04/22 06:00 07/04/22 08:00 Temperature 36.5 C Pulse Rate 71 Respiratory Rate 14 Blood Pressure 135/75 Pulse Oximetry 99 Oxygen Delivery Room Air Intake/Output Intake/Output: Intake & Output 07/01/22 07/02/22 07/03/22 07/04/22 23:59 23:59 23:59 23:59 Intake Total 1810 1360 2060 790 Output Total 600 1000 Balance 2167 215 3376 -210 Meds/Results Medications: Active Medications Generic Name Dose Route Start Last Admin Trade Name Freq PRN Reason Stop Dose Admin Aspirin 81 mg 06/30/22 09:00 07/04/22 08:58 Aspirin 81 Mg Enteric Tablet PO 81 mg QAM ERASTO Administration Atorvastatin Calcium 80 mg 06/28/22 23:15 07/03/22 21:07 Atorvastatin 40 Mg Tablet PO 80 mg QHS ERASTO Administration Clopi
[2022-07-04 14:00] VITALS: BP 140/60; PULSE 74; RESP 16; TEMP 36.4; O2SAT 99
[2022-07-04 16:30] LABS: Glucose Point of Care 155 mg/dl (65-105)
--- NOTE | 2022-07-04 20:11 | P.TS_ITS ---
Transfer Discharge Sum: Prov Provider Date of admission: 06/28/22 12:42 Primary care physician: Rosemary Vinson MD Admitting clinician: Raymundo Sewell MD Attending physician on admission: Lui Holder Consults: 06/28/22 Consult to Physician Routine Comment: left vm @[phone], spoke to dr @[phone](,) Consulting Provider: Orquidea Solis physically impaired teacher/MD group to consult: neurology Reason for consultation: cva vs seizure Has provider been notified: Yes Attending physician on discharge: Lui Holder Discharging clinician: Tito Person Anticipated date of transfer: 07/04/22 Receiving physician/facility: Dr. Natarajan at [facility] DS: Admitting Diagnosis Discharge Date 07/04/22 1400 Admitting Diagnosis Syncope/Near occlusion of the left carotid artery DS: Discharge Diagnosis Discharge Diagnosis (1) Unresponsiveness: Code(s): R41.89 - Other symptoms and signs involving cognitive functions and awareness Status: Acute Assessment and Plan: * Noted episode of decreased responsiveness witnessed by family, duration not entirely clear * likely consistent with syncopal event, most likely related to near carotid occlusion * see plan below * appreciate neurology consultation * head/neck CTA shows near occlusion of the left carotid artery, with collateral from the right * echocardiogram with normal EF 60-65%, grade 1 diastolic dysfunction, no significant valvular disease * EEG with findings consistent of mild encephalopathy, no epileptiform discharges. * Resolved at this time (2) Chronic left arterial ischemic stroke, ICA (internal carotid artery): Code(s): I69.30 - Unspecified sequelae of cerebral infarction Status: Acute Assessment and Plan: * history of CVA 6 weeks ago, evaluated at outside facility. * does not seem to have any major residual deficits * brain MRI showed subacute vs chronic infarcts involving left occipital lobe, left insula, left parietal lobe, and left thalamus * continue aspirin, Plavix, atorvastatin * Allow for permissive hypertension. Avoid hypotension, recommended MAP 65- 70. Do not treat for SBP <180 per U neuro pearl stringer recommendations. * Keep well hydrated. (3) ICAO (internal carotid artery occlusion): Code(s): I65.29 - Occlusion and stenosis of unspecified carotid artery Status: Acute Assessment and Plan: * CTA reveals new diffuse decreased caliber throughout the extracranial and intracranial left internal carotid artery secondary to likely flow limiting near occlusion stenosis at the left carotid bulb with 10% stenosis of the right carotid bulb * Neurology recommends evaluation by vascular surgery or neuro interventionalist given CVA and syncopal episodes. * Patient was evaluated by Dr. Ashley at [facility] in [place] (vascular surgery), surgery was not indicated at that time. * Spoke with [facility] neurointerventionalist, report patient may be candidate for stent, however would need to consider angiogram for further evaluation. * Recommends inpatient transfer rather than outpatient follow-up due to symptomatic episodes. * 06/30 16:20: Spoke with Dr. Natarajan at [facility]. Accepts patient for high priority transfer. Awaiting bed availability. (4) Diabetes mellitus: Code(s): E11.9 - Type 2 diabetes mellitus without complications Status: Acute Asses
--- NOTE | 2022-07-04 20:11 | PM.TDS ---
Transfer Discharge Sum: Prov Provider Date of admission: 06/28/22 12:42 Primary care physician: Rosemary Vinson MD Admitting clinician: Raymundo Sewell MD Attending physician on admission: Lui Holder Consults: 06/28/22 Consult to Physician Routine Comment: left vm @[phone], spoke to dr @[phone](,) Consulting Provider: Orquidea Solis body recall instructor/MD group to consult: neurology Reason for consultation: cva vs seizure Has provider been notified: Yes Attending physician on discharge: Lui Holder Discharging clinician: Tito Person Anticipated date of transfer: 07/04/22 Receiving physician/facility: Dr. Natarajan at [facility] DS: Admitting Diagnosis Discharge Date 07/04/22 1400 Admitting Diagnosis Syncope/Near occlusion of the left carotid artery DS: Discharge Diagnosis Discharge Diagnosis (1) Unresponsiveness: Code(s): R41.89 - Other symptoms and signs involving cognitive functions and awareness Status: Acute Assessment and Plan: Noted episode of decreased responsiveness witnessed by family, duration not entirely clear likely consistent with syncopal event, most likely related to near carotid occlusion see plan below appreciate neurology consultation head/neck CTA shows near occlusion of the left carotid artery, with collateral from the right echocardiogram with normal EF 60-65%, grade 1 diastolic dysfunction, no significant valvular disease EEG with findings consistent of mild encephalopathy, no epileptiform discharges. Resolved at this time (2) Chronic left arterial ischemic stroke, ICA (internal carotid artery): Code(s): I69.30 - Unspecified sequelae of cerebral infarction Status: Acute Assessment and Plan: history of CVA 6 weeks ago, evaluated at outside facility. does not seem to have any major residual deficits brain MRI showed subacute vs chronic infarcts involving left occipital lobe, left insula, left parietal lobe, and left thalamus continue aspirin, Plavix, atorvastatin Allow for permissive hypertension. Avoid hypotension, recommended MAP 65-70. Do not treat for SBP <180 per U neuro hourly team members recommendations. Keep well hydrated. (3) ICAO (internal carotid artery occlusion): Code(s): I65.29 - Occlusion and stenosis of unspecified carotid artery Status: Acute Assessment and Plan: CTA reveals new diffuse decreased caliber throughout the extracranial and intracranial left internal carotid artery secondary to likely flow limiting near occlusion stenosis at the left carotid bulb with 10% stenosis of the right carotid bulb Neurology recommends evaluation by vascular surgery or neuro interventionalist given CVA and syncopal episodes. Patient was evaluated by Dr. Ashley at [facility] in [place] (vascular surgery), surgery was not indicated at that time. Spoke with [facility] neurointerventionalist, report patient may be candidate for stent, however would need to consider angiogram for further evaluation. Recommends inpatient transfer rather than outpatient follow-up due to symptomatic episodes. 06/30 16:20: Spoke with Dr. Natarajan at [facility]. Accepts patient for high priority transfer. Awaiting bed availability. (4) Diabetes mellitus: Code(s): E11.9 - Type 2 diabetes mellitus without complications Status: Acute Assessment and Plan: Current Glucose is 172 A1c is 7.6. Home insulin regimen consist of 80 units Lantus q.h.s. with NovoLog 12 units a.m. 25 units with lunch and 25 units with dinner. Patient states he does not believe in diabetic diet or dietary modifications. Continue with Accu-Cheks, sliding scale insulin, hypoglycemic protocol Home metformin on hold Blood sugars are poorly controlled. Increase Lantus to 55 units Lantus qHS with novolog 18 units scheduled with meals Monitor glucose trends closely (5) Benign essential
== END 2022-07-04 20:20 | disposition short-term general hospital (02) ==
LOC: ANHED 09:01 → ANH3MEDSUR 13:46
PROVIDERS: Nurse Practitioner; Admitting Provider Internal Medicine; Emergency Provider Emergency Medicine; PCP Family Medicine; Visit Provider Physician Assistant
DX: I63.232 Cerebral infarction due to unspecified occlusion or stenosis of left carotid arteries (principal); R29.727 NIHSS score 27; K21.9 Gastro-esophageal reflux disease without esophagitis; E78.5 Hyperlipidemia, unspecified; K75.81 Nonalcoholic steatohepatitis (NASH); B02.23 Postherpetic polyneuropathy; J98.11 Atelectasis; I50.30 Unspecified diastolic (congestive) heart failure; Z20.822 Contact with and (suspected) exposure to COVID-19; I12.9 Hypertensive chronic kidney disease with stage 1 through stage 4 chronic kidney disease, or unspecified chronic kidney disease; E11.22 Type 2 diabetes mellitus with diabetic chronic kidney disease; N18.9 Chronic kidney disease, unspecified; I08.3 Combined rheumatic disorders of mitral, aortic and tricuspid valves; R94.01 Abnormal electroencephalogram [EEG]; M19.90 Unspecified osteoarthritis, unspecified site; Z87.891 Personal history of nicotine dependence; Z86.73 Personal history of transient ischemic attack (TIA), and cerebral infarction without residual deficits; Z79.4 Long term (current) use of insulin; Z79.02 Long term (current) use of antithrombotics/antiplatelets; Z79.84 Long term (current) use of oral hypoglycemic drugs; Z79.899 Other long term (current) drug therapy
CPT/HCPCS: 36415; 70450; 70496; 70498; 70551; 71045; 80048; 80053; 81001; 82948; 83036; 83605; 83735; 84443; 84484; 85025; 85027; 85610; 85730; 93005; 93306; 95816; 96361; 96374; 96375; 99285; A9270; C9803; G0378; J1200; J1815; J7030; Q9967; U0003; U0005

== ENCOUNTER 2023-02-19 15:43 | Observation (INO) | payer MEDICARE, SELFPAY ==
[2023-02-19] VITALS (12 sets, daily range): BP systolic 111–156; BP diastolic 48–73; PULSE 71–88; RESP 12–20; TEMP 36.1; O2SAT 91–100; BMI 24.3
--- NOTE | ~2023-02-19 | US_ITS ---
EXAMINATION: US renal BI DATE: 02/20/2023 12:20 INDICATION: Acute kidney injury. TECHNIQUE: Multiple ultrasound grayscale images of the kidneys were obtained. COMPARISON: CT abdomen and pelvis 05/07/2019 FINDINGS: The right kidney measures 9.7 x 5.6 x 5.5 cm. The left kidney measures 11.0 x 7.6 x 4.9 cm. The kidne ys demonstrate normal parenchymal echogenicity. There is no hydronephrosis. The bladder is normal. IMPRESSION: 1. Normal kidneys. No hydronephrosis. Reviewed, dictated and finalized at location A.
--- NOTE | ~2023-02-19 | CT_ITS ---
Noncontrast CT scan of the cervical spine Technique: Multiple contiguous axial [address] images of the cervical spine were obtained and rec onstructed in 2D sagittal and coronal planes on the acquisition scanner. Dose reduction technique was used on this scan by utilizing automated exposure control, adjustment of the mA and/or kV according to patient size. Clinical History: Pain Findings: No fracture or subluxation evident. There is advanced degenerative disc narrowing at C3-C4, C5-C6, and C6-C7. There is associated uncovertebral degenerative changes at these levels as well. Th ere is scattered facet joint degenerative changes in the cervical spine. There is left neural foramin al narrowing at C5-C6. No prevertebral soft tissue swelling. Impression: No fracture or subluxation of the cervical spine. Degenerative spondylosis, as above. Reviewed, dictated and finalized at [facility]. Impression: No fracture or subluxation of the cervical spine. Degenerative spondylosis, as above.
--- NOTE | ~2023-02-19 | XR_ITS ---
Clinical Indication: Shortness of breath PA and lateral views of the chest: Comparison: 06/28/2022 Findings: The lungs are clear, without evidence of focal consolidation or pleural effusion. Cardiome diastinal silhouette is within normal limits. Bones and soft tissues are unremarkable. Impression: Normal chest. Reviewed, dictated and finalized at location . Impression: Normal chest.
--- NOTE | ~2023-02-19 | CT_ITS ---
Non-contrast Head CT History: Status post fall COMPARISON: 06/28/2022 Technique: Axial non-contrast imaging of the brain was performed. Dose reduction technique was used on this scan by utilizing automated exposure control and iterative reconstruction technique. The dose -length product (DLP) was 605.33 mGy-cm. Findings: There is no evidence of intracranial hemorrhage, mass lesion, or acute infarct. Chronic ap pearing lacunar infarct present in the left periventricular white matter. The ventricles and subarac hnoid spaces are normal in size. The calvarium appears normal. The visualized paranasal sinuses and mastoid air cells are clear. Impression: No acute abnormality seen. Chronic appearing lacunar infarct in the left periventricular white matter. Reviewed, dictated and finalized at location . Impression: No acute abnormality seen. Chronic appearing lacunar infarct in the left periventricular white matter.
--- NOTE | 2023-02-19 15:57 | ECG_ITS ---
Measurements Intervals [place] Rate: 82 P: 52 FL: 152 QRS: -35 QRSD: 98 T: 64 QT: 371 QTc: 435 Interpretive Statements SINUS RHYTHM WITH OCCASIONAL VENTRICULAR PREMATURE COMPLEXES INFERIOR MYOCARDIAL INFARCTION , PROBABLY OLD [40+ ms Q WAVE AND/OR ST/T ABNORMALITY IN II/aVF] ABNORMAL ECG COMPARED TO ECG 06/28/2022 08:16:07 MYOCARDIAL INFARCT FINDING NOW PRESENT Electronically Signed On 02-20-2023 10:18:30 CDT by Casper Xiao M.D.
--- NOTE | 2023-02-19 16:31 | ED.WEAKNESS ---
HPI - Weakness General Chief complaint: Weakness Stated complaint: SOB/DIZZY/WEAKNESS/FALL Time Seen by Provider: 02/19/23 16:25 History of Present Illness HPI Narrative: Patient is a 77-year-old male with a history of CVA, diabetes, hypertension, hyperlipidemia, chronic left-sided carotid occlusion presenting with syncope. Patient states that he was feeling very lightheaded and groggy earlier today. States that he walked up his stairs to do laundry when he became severely lightheaded and syncopized. States that he thinks he struck his head on a doorknob. Afterwards he was overwhelmingly fatigued. His daughter is at bedside and states that it took at least 30 minutes for the fatigue to improve. States that he was so tired he could not lift his hands. States that he is also been tachypneic and seems more short of breath than normal. Currently, the patient states that it feels like his breathing has improved. He denies recent fevers, headache, new numbness or weakness, chest pain, palpitations, abdominal pain, nausea or vomiting, diarrhea, dysuria. States that he did have an episode of black stool last week. Related Data Home Medications Medication Instructions Recorded Confirmed insulin aspart U-100 100 unit/mL See Rx Instructions .Route .COMPLEX 02/26/21 02/19/23 (3 mL) subcutaneous pen (Novolog FlexPen U-100 Insulin aspart) insulin glargine 100 unit/mL 60 unit subcut QPM 02/26/21 02/19/23 subcutaneous solution (Lantus U-100 Insulin) metformin 1,000 mg tablet 500 mg PO BID 02/26/21 02/19/23 multivitamin 1 tablet PO DAILY 02/26/21 02/19/23 pantoprazole 40 mg tablet,delayed 40 mg PO QHS 02/26/21 02/19/23 release psyllium husk 0.4 gram capsule 0.4 g PO DAILY 02/26/21 02/19/23 (Metamucil) empagliflozin 25 mg tablet 12.5 mg PO DAILY 06/28/22 02/19/23 aspirin 81 mg tablet,delayed 81 mg PO DAILY 07/18/22 02/19/23 release (Adult Aspirin Regimen) atorvastatin 40 mg tablet 40 mg PO QHS 07/18/22 02/19/23 lisinopril 2.5 mg tablet 2.5 mg PO QAM 02/19/23 02/19/23 Allergies Allergy/AdvReac Type Severity Reaction Status Date / Time Penicillins Allergy Unknown unknown Verified 02/19/23 16:12 [id number]-GlZ Reductase Allergy Unknown unknown Verified 02/19/23 16:12 Inhibitor [Hqljwzd-Uqe-Odu Reductase Inhibitor] Sulfa (Sulfonamide Allergy Unknown unknown Verified 02/19/23 16:12 Antibiotics) sulfamerazine Allergy Unknown Unknown Verified 02/19/23 16:12 saxagliptin Allergy Unknown Verified 02/19/23 16:12 Review of Systems Review of Systems: All systems reviewed & are unremarkable except as noted in HPI and below PMFSH Past Medical History Medical History Abdominal aortic atherosclerosis Abdominal mass, right lower quadrant Abdominal wall hernia Annual physical exam Benign essential HTN BMI 27.0-27.9,adult Carotid atherosclerosis Constipation Degenerative arthritis of spine Diverticulosis of both small and large intestine Dupuytren's contracture of right hand Elevated LFTs Establishing care with new doctor, encounter for GERD (gastroesophageal reflux disease) Hyperlipidemia Mixed hyperlipidemia CHAPARRO (nonalcoholic steatohepatitis) Neck pain on left side Normal colonoscopy 2012,repeat 10 years On lobsterman drug therapy Post-herpetic polyneuropathy Right hand pain 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
[2023-02-19 16:52] LABS: Basophils Absolute Auto 0.1 K/mm3 (0.0-0.1); Eosinophils Absolute Auto 0.3 K/mm3 (0-0.3); Eosinophils Percent Auto 3.6 % (0-4.4); Hematocrit 37.2 % (42.0-52.0); Hemoglobin 12.7 g/dL (14.0-18.0); Immature Granulocyte Absolute 0.03 K/mm3 (0.00-0.031); Immature Granulocyte Percent A 0.3 % (0-0.5); Lymphocytes Absolute Auto 1.68 K/mm3 (0.9-3.2); Lymphocytes Percent Auto 18.7 % (18.3-44.2); Mean Corpuscular HGB Conc 34.1 g/dl (32-36); Mean Corpuscular Volume 87.7 fl (80-100); Mean Platelet Volume 9.5 fl (7.4-10.4); Monocytes Absolute Auto 0.9 K/mm3 (0.1-0.6); Neutrophils Percent Auto 66.4 % (45.5-73.1); Platelet Count Result 209 k/mm3 (150-375); Red Blood Count 4.24 M/mm3 (4.6-6.20); Red Cell Distribution Width 13.8 % (11.5-14.5)
[2023-02-19 17:05] LABS: Alanine Aminotransferase 27 U/L (6-50); Albumin Level 4.1 g/dL (3.5-5.1); Alkaline Phosphatase 85 U/L (38-126); Anion Gap 16 mmol/L (8-16); Aspartate Amino Transferase 29 U/L (17-59); Bilirubin,Total 0.5 mg/dL (0.2-1.3); Blood Urea Nitrogen 43 mg/dL (9-20); Calcium 8.8 mg/dL (8.4-10.2); Carbon Dioxide 18 mmol/L (22-30); Chloride 104 mmol/L (98-107); Estimated CRCL calculation 32 ml/min; Estimated Glomerular Filt Rate 37; Glucose 82 mg/dL (65-110); Potassium 4.3 mmol/L (3.4-5.0); Sodium 138 mmol/L (137-145)
[2023-02-19] MEDS: SODIUM CHLORIDE 0.9% IV 1,000 ML 999 ML IV CONT ×2 (17:45→19:02)
[2023-02-19 18:09] LABS: Basophils Absolute Auto 0.1 K/mm3 (0.0-0.1); Basophils Percent Auto 0.7 % (0.2-1.2); Eosinophils Absolute Auto 0.2 K/mm3 (0-0.3); Hematocrit 37.4 % (42.0-52.0); Hemoglobin 12.7 g/dL (14.0-18.0); Immature Granulocyte Absolute 0.06 K/mm3 (0.00-0.031); Immature Granulocyte Percent A 0.5 % (0-0.5); Lymphocytes Absolute Auto 1.58 K/mm3 (0.9-3.2); Lymphocytes Percent Auto 13.3 % (18.3-44.2); Mean Corpuscular Volume 88.4 fl (80-100); Mean Platelet Volume 9.3 fl (7.4-10.4); Monocytes Absolute Auto 1.1 K/mm3 (0.1-0.6); Neutrophils Absolute Auto 8.8 K/mm3 (1.3-6.7); Neutrophils Percent Auto 74.5 % (45.5-73.1); Platelet Count Result 225 k/mm3 (150-375); Red Blood Count 4.23 M/mm3 (4.6-6.20); Red Cell Distribution Width 13.9 % (11.5-14.5); White Blood Count 11.9 K/mm3 (4.5-10.0)
[2023-02-19 18:15] LABS: Appearance Urine Clear (Clear); Bacteria Urine None Seen /hpf; Bilirubin Urine Negative (Negative); Blood Urine Negative (Negative); Color Urine Yellow (Yellow); Glucose Urine UA 3+ mg/dL (Negative); Ketones Urine Trace mg/dL (Negative); Leukocyte Esterase Ur Negative LEU/UL (Negative); Nitrate Urine Negative (Negative); Protein Urine Trace mg/dL (Negative); RBC Urine 0-2 /hpf (0-2); Specific Grav Ur 1.025 (1.001-1.035); Squamous Epithelial Cell Urine None seen /hpf (Few); Urobilinogen Urine 0.2 mg/dL (<2.0); WBC Urine 0-5 /hpf
[2023-02-19 18:18] LABS: Magnesium 1.9 mg/dL (1.6-2.3)
[2023-02-19 18:19] LABS: Prothrombin Time 13.5 Seconds (11.1-14.7)
[2023-02-19 18:20] LABS: Alanine Aminotransferase 26 U/L (6-50); Albumin Level 4.4 g/dL (3.5-5.1); Alkaline Phosphatase 100 U/L (38-126); Anion Gap 13 mmol/L (8-16); Aspartate Amino Transferase 27 U/L (17-59); Bilirubin,Total 0.5 mg/dL (0.2-1.3); Blood Urea Nitrogen 44 mg/dL (9-20); Calcium 8.9 mg/dL (8.4-10.2); Carbon Dioxide 22 mmol/L (22-30); Chloride 103 mmol/L (98-107); Estimated CRCL calculation 32 ml/min; Estimated Glomerular Filt Rate 37; Glucose 84 mg/dL (65-110); Lactic Acid Reflex 3.9 mmol/L (0.7-2.0); Partial Thromboplastin Time 30.1 SECONDS (22.3-36.8); Potassium 4.6 mmol/L (3.4-5.0); Sodium 138 mmol/L (137-145)
[2023-02-19 18:29] LABS: NT Pro B Type Natriuretic Pept 24 pg/mL (19.9-100)
[2023-02-19 18:31] LABS: Troponin I < 0.012 ng/mL (0.000-0.034)
[2023-02-19 18:42] LABS: Add Urine Microscopic? YES
[2023-02-19 18:45] LABS: Influenza A QL RT-PCR Negative (Negative); Influenza B QL RT-PCR Negative (Negative); SARS-CoV-2 RNA PCR Negative (Negative)
--- NOTE | 2023-02-19 20:52 | PC.NURSE ---
Pt able to ambulate with steady gait to restroom
[2023-02-19 21:06] LABS: Reflex Lactic Acid Yes or No Add Lactic
[2023-02-19 21:27] LABS: Troponin I < 0.012 ng/mL (0.000-0.034)
--- NOTE | 2023-02-19 22:11 | PM.IMHP ---
H&P: HPI History of Present Illness Date/Time: 02/19/23 22:11 Chief Complaint: Syncope Narrative: This is a 77-year-old male with past medical history significant for stroke, carotid artery disease, dyslipidemia, type diabetes mellitus, GERD. Patient presents to the emergency room after having a syncopal episode has had similar episodes recently with recent admission and discharge from outside facility. [facility] According to patient he was doing some house chores when he fell dizzy and collapsed. Patient denies any shortness of breath, chest pain, palpitations, no cough, no leg swelling, no PND, no orthopnea. Preliminary workup was significant for creatinine of 1.8 a BUN 44 Clinical Indication: Shortness of breath ?PA and lateral views of the chest: Comparison: 06/28/2022 Findings: The lungs are clear, without evidence of focal consolidation or pleural effusion.? Cardiomediastinal silhouette is within normal limits. Bones and soft tissues are unremarkable. ? Impression: ? Normal chest. Non-contrast Head CT History: Status post fall COMPARISON: 06/28/2022 Technique:? Axial non-contrast imaging of the brain was performed. Dose reduction technique was used on this scan by utilizing automated exposure control and iterative reconstruction technique. The dose-length product (DLP) was 605.33 mGy-cm. Findings:? There is no evidence of intracranial hemorrhage, mass lesion, or acute infarct. Chronic appearing lacunar infarct present in the left periventricular white matter.? The ventricles and subarachnoid spaces are normal in size.? The calvarium appears normal.? The visualized paranasal sinuses and mastoid air cells are clear. Impression: No acute abnormality seen. Chronic appearing lacunar infarct in the left periventricular white matter. Noncontrast CT scan of the cervical spine Technique: Multiple contiguous axial [address] images of the cervical spine were obtained and reconstructed in 2D sagittal and coronal planes on the acquisition scanner. Dose reduction technique was used on this scan by utilizing automated exposure control, adjustment of the mA and/or kV according to patient size. Clinical History: Pain Findings: No fracture or subluxation evident. There is advanced degenerative disc narrowing at C3-C4, C5-C6, and C6-C7. There is associated uncovertebral degenerative changes at these levels as well. There is scattered facet joint degenerative changes in the cervical spine. There is left neural foraminal narrowing at C5-C6. No prevertebral soft tissue swelling. Impression: No fracture or subluxation of the cervical spine. Degenerative spondylosis, as above. [facility] Past Medical History Medical History Abdominal aortic atherosclerosis Abdominal mass, right lower quadrant Abdominal wall hernia Annual physical exam Benign essential HTN BMI 27.0-27.9,adult Carotid atherosclerosis Constipation Degenerative arthritis of spine Diverticulosis of both small and large intestine Dupuytren's contracture of right hand Elevated LFTs Establishing care with new doctor, encounter for GERD (gastroesophageal reflux disease) Hyperlipidemia Mixed hyperlipidemia CHAPARRO (nonalcoholic steatohepatitis) Neck pain on left side Normal colonoscopy 2012,repeat 10 years On terminal carman drug therapy Post-herpetic polyneuropathy Right hand pain 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
--- NOTE | 2023-02-19 22:37 | ADMGEN ---
This patient, Landen Eaton, was admitted to IMU Room 206-02. Patient/family oriented to hospital policies and general routines including ID bracelet, bed and alarms, visiting hours, pain management, procedures, bathroom and other care routines, personal items, smoking policy, room service/diet, and visiting hours. Information on how to activate the Rapid Response Team has been discussed. Patient/Family are encouraged to report perceived risks to care and to ask questions if they do not understand what they are told or what they should do.
[2023-02-19 23:21] LABS: Lactic Acid 1.1 mmol/L (0.7-2.0)
[2023-02-20] VITALS (10 sets, daily range): BP systolic 114–155; BP diastolic 57–68; PULSE 68–95; RESP 16–18; TEMP 36.5–36.9; O2SAT 97–100
--- NOTE | 2023-02-20 | ECHO_ITS ---
Patient Info Name: Landen Eaton Age: 77 years : 1945 Gender: Male Ht: 69 in Wt: 164 lbs BSA: 1.91 m2 HR: 71 bpm BP: 133 / 60 mmHg Technical Quality: Good Exam Date: 02/20/2023 9:27 AM Exam Location: [facility] Pulmonary Patient Status: Outpatient Admit Date: 02/19/2023 Staff Ordering Physician: Chris Olvera DO Traffic Signal Mechanic: Magaly Guajardo RDCS Attending Provider: Sameera Salinas MD Referring Physician: Wade RON; Exam Type: CA echo doppler color flow Study Info Indications R55 - Syncope and collapse Complete two-dimensional, color flow and Doppler transthoracic echocardiogram is performed. Summary 1. Complete two-dimensional, color flow and Doppler transthoracic echocardiogram is performed. 2. Left ventricular chamber dimension is normal. 3. Left ventricular systolic function is normal, estimated at 60-65%. 4. The left ventricular diastolic function is grade I diastolic dysfunction. 5. E/e '12 is mildly elevated. 6. There is mild aortic valve sclerosis. 7. The mitral valve has moderately calcified annulus. 8. There is trace mitral valve regurgitation. 9. There is mild tricuspid valve regurgitation. 10. No pulmonary hypertension, estimated pulmonary arterial systolic pressure is 30 mmHg. Left Ventricle E/e '12 is mildly elevated. Left ventricular chamber dimension is normal. Left ventricular systolic function is normal, estimated at 60-65%. The left ventricular diastolic function is grade I diastolic dysfunction. Right Ventricle Right ventricular systolic function is normal and with normal TAPSE 2.4 cm. Right ventricular chamber dimension is normal. Left Atria Left atrial chamber dimension is normal. Right Atria Right atrial chamber dimension is normal. Aortic Valve The aortic valve is trileaflet. There is mild aortic valve sclerosis. There is no aortic valve stenosis. There is no aortic valve regurgitation. Pulmonic Valve There is no pulmonic regurgitation. Mitral Valve The mitral valve has moderately calcified annulus. There is no mitral valve stenosis. There is trace mitral valve regurgitation. Tricuspid Valve There is mild tricuspid valve regurgitation. No pulmonary hypertension, estimated pulmonary arterial systolic pressure is 30 mmHg. Pericardium/Pleural There is no pericardial effusion. Inferior Vena Cava Normal inferior vena cava with >50% collapse upon inspiration consistent with normal right atrial pressure, 5 mmHg. Aorta The aortic root size at the sinus of Valsalva is normal. Left Ventricular Outflow Tract Name Value Normal LVOT 2D LVOT Diameter 1.9 cm LVOT Doppler LVOT Peak Gradient 5 mmHg LVOT Mean Gradient 3 mmHg LVOT VTI 23 cm LVOT VTI/AV VTI Ratio 1.0 LVOT Stroke Volume 67 ml LVOT CO 4.7 l/min LVOT CI 2.5 l/min/m2 Pulmonic Valve Name Value Normal
[2023-02-20 07:34] LABS: Glucose Point of Care 120 mg/dl (65-105)
--- NOTE | 2023-02-20 08:03 | PM.CNCAR ---
Assessment and Plan Assessment and plan (1) Syncope and collapse: Code(s): R55 - Syncope and collapse Status: Acute Assessment and Plan: Recurrent dizziness since his stroke in Jun 2022. Could be neurologic. Telemetry is unremarkable. Obtain echo. If echo is OK, will obtain 30 day event monitor upon discharge. (2) Carotid atherosclerosis: Code(s): I65.29 - Occlusion and stenosis of unspecified carotid artery Status: Acute Assessment and Plan: On aspirin and Plavix. (3) Benign essential HTN: Code(s): I10 - Essential (primary) hypertension Status: Acute Assessment and Plan: Stable. (4) Hyperlipidemia: Code(s): E78.5 - Hyperlipidemia, unspecified Status: Acute Assessment and Plan: On Atorvastatin. History of Present Illness History of Present Illness Consult date/time: 02/20/23 08:03 Reason For Visit: Syncope Narrative: 77 yr old man presents to ER due to recurrent dizziness. He has a history of stroke in Jun 2022 and has intermittent dizziness since and has been evaluated at [facility] for it, he was transferred to [facility] in Jun for stroke and having severe left carotid stenosis which is managed medically, DM, dyslipidemia. Reports he was doing laundry at home going to basement and back up and felt dizziness. Then when he went upstairs to get his medication for his he felt dizziness again, this time he fell down as his knees buckled and may have hit his head on door knob going down. He denies passing out completely. He can walk up to 2 miles without an problems but is less since his stroke. Denies chest pain, sob, orthopnea, PND, edema. Review of Systems Review of Systems: All systems reviewed & are unremarkable except as noted in HPI and below Cardiovascular: Cardiovascular: Reports as per HPI, Denies chest pain and Denies irregular heart rhythm Respiratory: Respiratory: Reports as per HPI and Denies dyspnea Gastrointestinal: Gastrointestinal: Reports as per HPI and Denies abdominal pain Genitourinary: Genitourinary: Reports as per HPI and Denies dysuria Musculoskeletal: Musculoskeletal: Reports as per HPI Neurologic: Reports as per HPI, Reports dizziness and Denies syncope [facility] Past Medical History Medical History Abdominal aortic atherosclerosis Abdominal mass, right lower quadrant Abdominal wall hernia Annual physical exam Benign essential HTN BMI 27.0-27.9,adult Carotid atherosclerosis Constipation Degenerative arthritis of spine Diverticulosis of both small and large intestine Dupuytren's contracture of right hand Elevated LFTs Establishing care with new doctor, encounter for GERD (gastroesophageal reflux disease) Hyperlipidemia Mixed hyperlipidemia CHAPARRO (nonalcoholic steatohepatitis) Neck pain on left side Normal colonoscopy 2012,repeat 10 years On jail drug therapy Post-herpetic polyneuropathy Right hand pain 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 He has 2 children. He is retired from [employer]. He is a [place] vet. He was a former smoker. No longer drinks. He does not use any marijuana or illicit drugs. 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 Code status full code Smoking packs per day: 1 Smoking cigarettes per day: 20.0 Years smo
[2023-02-20] MEDS: PSYLLIUM SUGAR FREE POWDER PACKET 1 PACKET PO (08:51)
[2023-02-20] MEDS: ASPIRIN 81 MG ENTERIC TABLET PO (08:51)
[2023-02-20] MEDS: CLOPIDOGREL BISULFATE 75 MG TABLET PO (08:51)
[2023-02-20] MEDS: MULTIVITAMINS THERAPEUTIC TAB (*BKC) 1 TABLET PO (08:51)
--- NOTE | 2023-02-20 11:19 | PM.DS ---
DS: Admitting Diagnosis Discharge Date February 20, 2023 Admitting Diagnosis Near syncope DS: Discharge Diagnosis Discharge Diagnosis (1) Syncope and collapse: Code(s): R55 - Syncope and collapse Status: Acute Assessment and Plan: Place in observation in IMU Continuous telemetry Cardiology consult Might benefit from Holter monitoring EKG Rate 82 LA 152 QRSd 98 QT 371 QTc 435 --[place]-- P 52 QRS -35 T 64 SINUS RHYTHM WITH OCCASIONAL VENTRICULAR PREMATURE COMPLEXES INFERIOR MYOCARDIAL INFARCTION , PROBABLY OLD [40+ ms Q WAVE AND/OR ST/T ABNORMALITY IN II/aVF] COMPARED TO ECG 06/28/2022 08:16:07 MYOCARDIAL INFARCT FINDING NOW PRESENT (2) Chronic left arterial ischemic stroke, ICA (internal carotid artery): Code(s): I69.30 - Unspecified sequelae of cerebral infarction Status: Acute Assessment and Plan: Continue Lipitor and Plavix (3) GERD (gastroesophageal reflux disease): Code(s): K21.9 - Gastro-esophageal reflux disease without esophagitis Status: Acute Assessment and Plan: PPI (4) CHAPARRO (nonalcoholic steatohepatitis): Code(s): K75.81 - Nonalcoholic steatohepatitis (CHAPARRO) Status: Acute Assessment and Plan: Unchanged (5) Type 2 diabetes mellitus with diabetic chronic kidney disease: Code(s): E11.22 - Type 2 diabetes mellitus with diabetic chronic kidney disease Status: Acute Assessment and Plan: Holding metformin Continue insulin glargine Continue aspart insulin Holding empagliflozin (6) Acute kidney injury superimposed on CKD: Code(s): N17.9 - Acute kidney failure, unspecified; N18.9 - Chronic kidney disease, unspecified Status: Acute Assessment and Plan: Gentle hydration Continue to monitor BUN and creatinine Will hold lisinopril DS: Summary Hospital Course Hospital Course: Patient was admitted for a near syncopal episode. This is a recurring problem for him. He does have a history of complete occlusion of the carotid artery. He remains on all his cardiac and vascular medications. Echocardiogram was performed on this hospitalization. Event monitor will also be set up. Patient can follow-up with Cardiology. He will also need follow-up with the surgeon and his neurologist in [place]. Time Spent with Patient Time attestation: Total time spent providing and/or coordinating discharge services: Exam Narrative: GENERAL: Well-appearing, well-nourished, and in no acute distress. HEAD: Normocephalic, atraumatic. EYES: PERRLA and EOMI. ENT: Nares clear, no rhinorrhea or epistaxis. Mucous membranes tacky NECK: Supple. CHEST: Tachypneic with slightly increased work of breathing but lungs are clear bilaterally, saturating 100% on room air HEART: Regular rate and rhythm. No murmur heard. Normal peripheral pulses. ABDOMEN: Soft, nontender, nondistended EXTREMITIES: Normal range of motion. No edema. SKIN: Warm, dry, no rash. NEURO: 5 out of 5 strength in all extremities, mild ataxia with [id number] on the right, no dysarthria PSYCH: Normal mood and affect. DS: Data Data Completed and Pending Labs on day of discharge: Labs from last 24 hours 02/20/23 02/19/23 02/19/23 07:20 22:59 20:57 WBC RBC Hgb Hct MCV MCH MCHC RDW Plt Count MPV Immature Gran % (Auto) Neut % (Auto) Lymph % (Auto) Cobb % (Auto) Eos % (Auto) Baso % (Auto) Lymph # (Auto) Cobb # (Auto) Eos # (Auto) Baso # (Auto) Abs Immat Gran (auto) Absolute Neuts (auto) Absolute Nucleated RBC Nucleated RBC % PT INR APTT Sodium Potassium Chloride Carbon Dioxide Anion Gap BUN Creatinine Estim Creat Clear Calc Estimated GFR Glucose POC Capillary Glucose 120 H Lactic Acid 1.1 Calcium Magnesium Total Bilirubin AST ALT Alkaline Phosphatase Troponin I < 0.012 NT-Pro-B Natriure
[2023-02-20 12:00] LABS: Glucose Point of Care 168 mg/dl (65-105)
== END 2023-02-20 14:37 | disposition home or self-care (01) ==
LOC: ANHED 16:25 → ANHIMU 02-20 11:19
PROVIDERS: Emergency Medicine; Admitting Provider Internal Medicine; Emergency Provider Emergency Medicine; PCP Family Medicine; Visit Provider Chiropractor
DX: R55 Syncope and collapse (principal); I69.30 Unspecified sequelae of cerebral infarction; K21.9 Gastro-esophageal reflux disease without esophagitis; K75.81 Nonalcoholic steatohepatitis (NASH); Z20.822 Contact with and (suspected) exposure to COVID-19; E11.42 Type 2 diabetes mellitus with diabetic polyneuropathy; E11.22 Type 2 diabetes mellitus with diabetic chronic kidney disease; I12.9 Hypertensive chronic kidney disease with stage 1 through stage 4 chronic kidney disease, or unspecified chronic kidney disease; N18.9 Chronic kidney disease, unspecified; I65.22 Occlusion and stenosis of left carotid artery; I70.0 Atherosclerosis of aorta; I34.81 Nonrheumatic mitral (valve) annulus calcification; R94.31 Abnormal electrocardiogram [ECG] [EKG]; K57.90 Diverticulosis of intestine, part unspecified, without perforation or abscess without bleeding; E78.5 Hyperlipidemia, unspecified; R53.83 Other fatigue; M47.812 Spondylosis without myelopathy or radiculopathy, cervical region; Z79.4 Long term (current) use of insulin; Z87.891 Personal history of nicotine dependence; Z79.84 Long term (current) use of oral hypoglycemic drugs; Z79.82 Long term (current) use of aspirin; Z79.899 Other long term (current) drug therapy
CPT/HCPCS: 36415; 70450; 71046; 72125; 76775; 80053; 81001; 82948; 83605; 83735; 83880; 84443; 84484; 85025; 85610; 85730; 87636; 93005; 93306; 96360; 96361; 99285; A9270; G0378; J7030

== ENCOUNTER 2023-04-21 17:42 | Emergency (ER) | payer MEDICARE, SELFPAY ==
[2023-04-21 17:54] VITALS: BP 115/73; PULSE 70; RESP 14; TEMP 36.6; O2SAT 100
--- NOTE | 2023-04-21 17:55 | ED.MALEGU ---
HPI - Male Genitourinary General Chief complaint: Urogenital-Male Stated complaint: UTI Time Seen by Provider: 04/21/23 17:56 Source: patient, RN notes reviewed and old records reviewed Mode of arrival: ambulatory Limitations: no limitations History of Present Illness HPI Narrative: 77-year-old male presents to the [facility] with urinary frequency and urgency since yesterday. Has a history of diabetes, low blood pressure, acid reflux. Per his Dexcom his blood sugars have been running higher than normal. Currently 217 Was originally admitted to [facility] and discharged April 02 for urinary tract infection, pneumonia and sepsis Onset (ago): day(s) (1) Related Data Home Medications Medication Instructions Recorded Confirmed insulin glargine 100 unit/mL 60 unit subcut QPM 02/26/21 04/21/23 subcutaneous solution (Lantus U-100 Insulin) multivitamin 1 tablet PO DAILY 02/26/21 04/21/23 pantoprazole 40 mg tablet,delayed 40 mg PO QHS 02/26/21 04/21/23 release psyllium husk 0.4 gram capsule 0.4 g PO DAILY 02/26/21 04/21/23 (Metamucil) empagliflozin 25 mg tablet 12.5 mg PO DAILY 06/28/22 04/21/23 aspirin 81 mg tablet,delayed 81 mg PO DAILY 07/18/22 04/21/23 release (Adult Aspirin Regimen) atorvastatin 40 mg tablet 40 mg PO QHS 07/18/22 04/21/23 lisinopril 2.5 mg tablet 2.5 mg PO QAM 02/19/23 04/21/23 insulin aspart U-100 100 unit/mL See Rx Instructions .Route .COMPLEX 04/11/23 04/21/23 (3 mL) subcutaneous pen (Novolog FlexPen U-100 Insulin aspart) Allergies Allergy/AdvReac Type Severity Reaction Status Date / Time Penicillins Allergy Unknown unknown Verified 04/21/23 17:45 [id number]-ZlX Reductase Allergy Unknown unknown Verified 04/21/23 17:45 Inhibitor [Tvcsykz-Iae-Bru Reductase Inhibitor] Sulfa (Sulfonamide Allergy Unknown unknown Verified 04/21/23 17:45 Antibiotics) sulfamerazine Allergy Unknown Unknown Verified 04/21/23 17:45 saxagliptin Allergy Unknown Verified 04/21/23 17:45 Review of Systems Review of Systems: All systems reviewed & are unremarkable except as noted in HPI and below Constitutional: Constitutional: Reports no additional constitutional complaints Eyes: Eyes: Reports no additional eye complaints ENT: Reports system reviewed and no additional complaints, except as documented Cardiovascular: Cardiovascular: Reports no additional cardiovascular complaints, Denies chest pain and Denies dyspnea Respiratory: Respiratory: Reports no additional respiratory complaints, Denies chest congestion, Denies cough and Denies dyspnea Gastrointestinal: Gastrointestinal: Reports no additional gastrointestinal complaints, Denies abdominal pain, Denies nausea and Denies vomiting Genitourinary: Genitourinary: Reports as per HPI and Reports dysuria Musculoskeletal: Musculoskeletal: Reports no additional musculoskeletal complaints Integumentary/Breasts: Skin/Breast: Reports system reviewed and no additional complaints, except as docu Neurologic: Reports system reviewed and no additional complaints, except as documented Psychiatric: Psychiatric: Reports no additional psychiatric complaints Allergic/Immunologic: Allergic/Immunologic: Reports no additional allergic/immunologic complaints PMFSH Past Medical History Medical History Abdominal aortic atherosclerosis Abdominal mass, right lower quadrant Abdominal wall hernia Annual physical exam Benign essential HTN BMI 27.0-27.9,adult Carotid atherosclerosis Constipation Degenerative arthritis of spine Diverticulosis of both small and large intestine Dupuytren's contracture of right hand Elevated LFTs Establishing care with new doctor, encounter for GERD (gastroesophageal reflux disease) Hyperlipidemia Mixed hyperlipidemia CHAPARRO (nonalcoholic steatohepatitis) Neck pain on left side Normal colonoscopy 2012,repeat 10 years On extermination inspector drug therapy Post-her
== END 2023-04-21 18:27 | disposition home or self-care (01) ==
PROVIDERS: Emergency Provider Nurse Practitioner; PCP Family Medicine
DX: N39.0 Urinary tract infection, site not specified (principal); E11.65 Type 2 diabetes mellitus with hyperglycemia; K21.9 Gastro-esophageal reflux disease without esophagitis; E78.2 Mixed hyperlipidemia; K75.81 Nonalcoholic steatohepatitis (NASH); I12.9 Hypertensive chronic kidney disease with stage 1 through stage 4 chronic kidney disease, or unspecified chronic kidney disease; E11.22 Type 2 diabetes mellitus with diabetic chronic kidney disease; N18.9 Chronic kidney disease, unspecified; Z79.4 Long term (current) use of insulin; E11.42 Type 2 diabetes mellitus with diabetic polyneuropathy; Z87.891 Personal history of nicotine dependence
CPT/HCPCS: 81003; 87077; 87086; 87186; 99213; G0463